=== PATIENT | female | born 1935 | race Caucasian/White ===

== ENCOUNTER → 2016-09-11 | Outpatient (REF) | payer MEDICARE ==
[~2016-09-11] MED LIST: ACET65TA PO; ALIG4CAP PO; ALLO300T OR; AMLO5TAB2 PO; ANUS25SU PR; ASPI81TA83 OR; CALCTAB22 OR; CIPR25SS PO; FLAG500T PO; GLIM1TAB OR; GLUC1000 OR; LEVO100T7 OR; LISI20TA5 OR; OXYB5TAB OR; TRAM50TA2 PO; VIT D; VIT D OR; VITA-113 SL; [UNRECOGNIZED DRUG - OTHER]; [UNRECOGNIZED DRUG - OTHER] OR
== END ==
LOC: M LAB REF 09:51
PROVIDERS: ATTEND Physician Assistant Medical
DX: R19.7 Diarrhea, unspecified (principal)

== ENCOUNTER → 2016-09-27 | Outpatient (REF) | payer MEDICARE | LOC: M LAB REF 12:03 | PROVIDERS: ATTEND Physician Assistant Medical | DX: R19.7 Diarrhea, unspecified (principal) ==

== ENCOUNTER → 2016-10-17 | Outpatient (REF) | payer MEDICARE ==
[~2016-10-17] MED LIST changes: +ASPI1TAB PO; +CALCTAB29 PO; +LEVO100T5 PO; +LISI10TA4 PO; +METF1000 PO; +OXYBPOW PB; +VITA250L PO; +ZYLO300T4 PO
== END ==
LOC: M LAB REF 20:45
PROVIDERS: ATTEND Physician Assistant Medical
DX: A04.7 Enterocolitis due to Clostridium difficile (principal)

== ENCOUNTER → 2016-10-19 | Outpatient (CLI) | payer OTHER ==
[~2016-10-19] VITALS: Ht 160 cm; Wt 65.8 kg
[~2016-10-19] MED LIST changes: +FECAL MICROBIOTA PREPARATION 30 ML BTL (J3590) XX ONE; +LIDOCAINE 2% INJ 100 MG/5 ML SDV (FOR ANES.) As Ordered ONE; +NS 1,000 ML IV SCH; +PROPOFOL 200 MG/20 ML VIAL As Ordered ONE
--- NOTE | 2016-10-19 15:39 | ROOR ---
Patient Name: Anisha Ford Procedure Date: 10/19/2016 3:17 PM Date of : 1935 Age: 81 Room: [facility] Gender: Female Note Status: Finalized Procedure: Upper GI endoscopy Indications: Therapeutic procedure, Heartburn Fecal Transplant for recurrent C difficile. Providers: He MARCOS MD Referring MD: Melvin Jiang MD Requesting Provider: Medicines: Monitored Anesthesia Care Complications: No immediate complications. Procedure: Pre-Anesthesia Assessment: - The heart rate, respiratory rate, oxygen saturations, blood pressure, adequacy of pulmonary ventilation, and response to care were monitored throughout the procedure. The Endoscope was introduced through the mouth, and advanced to the third part of duodenum. The upper GI endoscopy was accomplished without difficulty. The patient tolerated the procedure well. Findings: The examined duodenum was normal. Fecal Microbiota Transplant (Bacteriotherapy): Donor stool was prepared as per protocol. Donor stool was instilled. The exam was otherwise without abnormality. Impression: - Fecal Microbiota Transplant (Bacteriotherapy) performed. - The examination was otherwise normal. - No specimens collected. Recommendation: - Observe patient's clinical course. He Marcos MD He MARCOS MD 10/19/2016 3:39:12 PM This report has been signed electronically. Number of Addenda: 0 Note Initiated On: 10/19/2016 3:17 PM Estimated Blood Loss: Estimated blood loss: none.
[2016-10-19 16:09] VITALS: BP 120/71
== END ==
LOC: M OPP 13:38
PROVIDERS: ATTEND Internal Medicine Gastroenterology
DX: A04.7 Enterocolitis due to Clostridium difficile (principal); I10 Essential (primary) hypertension; E11.9 Type 2 diabetes mellitus without complications; M10.9 Gout, unspecified; R12 Heartburn; E03.9 Hypothyroidism, unspecified; Z78.0 Asymptomatic menopausal state; Z88.2 Allergy status to sulfonamides; Z88.8 Allergy status to other drugs, medicaments and biological substances; Z91.048 Other nonmedicinal substance allergy status; Z79.82 Long term (current) use of aspirin; Z79.84 Long term (current) use of oral hypoglycemic drugs; Z79.899 Other long term (current) drug therapy
CPT/HCPCS: 99156; G0455; J3590

== ENCOUNTER → 2016-10-28 | Outpatient (REF) | payer MEDICARE ==
[~2016-10-28] MED LIST changes: -FECAL MICROBIOTA PREPARATION 30 ML BTL (J3590) XX ONE; -LIDOCAINE 2% INJ 100 MG/5 ML SDV (FOR ANES.) As Ordered ONE; -NS 1,000 ML IV SCH; -PROPOFOL 200 MG/20 ML VIAL As Ordered ONE
== END ==
LOC: M LAB REF 15:40
PROVIDERS: ATTEND Physician Assistant Medical
DX: R19.7 Diarrhea, unspecified (principal)

== ENCOUNTER → 2016-12-02 | Outpatient (CLI) | payer OTHER ==
[~2016-12-02] VITALS: Ht 160 cm; Wt 63.5 kg
[~2016-12-02] MED LIST changes: +LIDOCAINE 2% INJ 100 MG/5 ML SDV (FOR ANES.) As Ordered ONE; +META28.32 PO; +NS 1,000 ML IV SCH; -OXYBPOW PB; +OXYBPOW PO; +PROPOFOL 500 MG/50 ML VIAL As Ordered ONE
--- NOTE | 2016-12-02 10:05 | ROOR ---
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 Eval to r/o microscopic colitis Providers: He MARCOS MD Referring MD: Melvin Jiang MD Requesting Provider: Medicines: Monitored Anesthesia Care Complications: No immediate complications. Procedure: Pre-Anesthesia Assessment: - The heart rate, respiratory rate, oxygen saturations, blood pressure, adequacy of pulmonary ventilation, and response to care were monitored throughout the procedure. The Colonoscope was introduced through the anus and advanced to 4 cm into the ileum. The colonoscopy was performed without difficulty. The patient tolerated the procedure well. The quality of the bowel preparation was good. Findings: The perianal and digital rectal examinations were normal. Multiple medium-mouthed diverticula were found in the sigmoid colon. A diminutive polyp was found in the cecum. The polyp was sessile. The polyp was removed with a jumbo cold forceps. Resection and retrieval were complete. The exam was otherwise normal throughout the examined colon. The terminal ileum appeared normal. Biopsies for histology were taken with a cold forceps from the entire colon for evaluation of microscopic colitis. Impression: - Moderate diverticulosis in the sigmoid colon. - One diminutive polyp in the cecum, removed with a jumbo cold forceps. Resected and retrieved. - The examined portion of the ileum was normal. - Biopsies were taken with a cold forceps from the entire colon for evaluation of microscopic colitis. - Fluid collected for C difficile testing Recommendation: - Imodium 1 tablet PO BID. - Return to my office at the next available appointment. - To discuss todays findings, my office will call you in the next few days to schedule a follow up appointment. He Marcos MD He MARCOS MD 12/02/2016 10:05:41 AM This report has been signed electronically. Number of Addenda: 0 Note Initiated On: 12/02/2016 9:40 AM Estimated Blood Loss: Estimated blood loss: none.
[2016-12-02 10:25] VITALS: BP 138/83
== END | disposition home or self-care (01) ==
LOC: M OPP 07:42
PROVIDERS: ATTEND Internal Medicine Gastroenterology
DX: R19.7 Diarrhea, unspecified (principal); D12.0 Benign neoplasm of cecum; K57.30 Diverticulosis of large intestine without perforation or abscess without bleeding; I10 Essential (primary) hypertension; E11.9 Type 2 diabetes mellitus without complications; E03.9 Hypothyroidism, unspecified; K57.92 Diverticulitis of intestine, part unspecified, without perforation or abscess without bleeding; A04.7 Enterocolitis due to Clostridium difficile; Z78.0 Asymptomatic menopausal state; Z88.2 Allergy status to sulfonamides; Z88.8 Allergy status to other drugs, medicaments and biological substances; Z91.048 Other nonmedicinal substance allergy status; Z79.84 Long term (current) use of oral hypoglycemic drugs; Z79.82 Long term (current) use of aspirin; Z79.899 Other long term (current) drug therapy

== ENCOUNTER → 2017-01-20 | Outpatient (REF) | payer MEDICARE ==
[~2017-01-20] MED LIST changes: -LIDOCAINE 2% INJ 100 MG/5 ML SDV (FOR ANES.) As Ordered ONE; -NS 1,000 ML IV SCH; -PROPOFOL 500 MG/50 ML VIAL As Ordered ONE
[2017-01-20 13:41] LABS: MEAN CORPUSCULAR HEMOGLOBIN 34.8 pg (27.0-33.0); MEAN CORPUSCULAR HGB CONC 33.7 g/dl (32.0-36.5); MEAN CORPUSCULAR VOLUME 103.4 fl (80.0-96.0); RED CELL DISTRIBUTION WIDTH 14.2 % (11.5-14.5); WHITE BLOOD COUNT 5.9 K/mm3 (4.0-10.0)
[2017-01-20 14:05] LABS: ALBUMIN 3.8 GM/DL (3.2-5.2); ALBUMIN/GLOBULIN RATIO 1.15 (1.00-1.93); BILIRUBIN,TOTAL 0.5 MG/DL (0.2-1.0); CALCIUM LEVEL 9.1 MG/DL (8.8-10.2); CREATININE FOR GFR 1.09 MG/DL (0.55-1.02); FREE T4 1.35 NG/DL (0.76-1.46); GLOMERULAR FILTRATION RATE 51.4 (>32); TOTAL PROTEIN 7.1 GM/DL (6.4-8.2)
== END ==
LOC: M SFHCPLAZ 11:16
PROVIDERS: ATTEND Family Medicine
DX: R35.0 Frequency of micturition (principal); D51.9 Vitamin B12 deficiency anemia, unspecified; E11.9 Type 2 diabetes mellitus without complications; E03.9 Hypothyroidism, unspecified; E78.2 Mixed hyperlipidemia
CPT/HCPCS: 36415; 80053; 80061; 81002; 82607; 83036; 84439; 84443; 85027; 87086; G0463

== ENCOUNTER → 2017-02-03 | Outpatient (REF) | payer OTHER, MEDICARE | LOC: M LAB REF 15:16 | PROVIDERS: ATTEND Internal Medicine Gastroenterology | DX: K52.831 Collagenous colitis (principal); R19.7 Diarrhea, unspecified; A04.7 Enterocolitis due to Clostridium difficile ==

== ENCOUNTER → 2017-02-23 | Outpatient (REF) | payer MEDICARE ==
[~2017-02-23] MED LIST changes: -METF1000 PO; +METF10004 PO
[2017-02-23 12:02] LABS: BASO # 0.1 K/mm3 (0.0-0.2); BASO % 0.8 % (0.0-1.0); EOS # 0.1 K/mm3 (0.0-0.50); EOS % 2.1 % (0.0-3.0); LARGE UNSTAINED CELL # 0.2 K/mm3 (0.0-0.4); LARGE UNSTAINED CELL % 2.1 % (0.0-4.0); LYMPH # 2.5 K/mm3 (1.5-4.5); LYMPH % 34.4 % (24.0-44.0); MEAN CORPUSCULAR HGB CONC 32.4 g/dl (32.0-36.5); MEAN CORPUSCULAR VOLUME 104.9 fl (80.0-96.0); MONO # 0.3 K/mm3 (0.0-0.8); NEUTROPHILS # 3.9 K/mm3 (1.8-7.7); NEUTROPHILS % 56.5 % (36.0-66.0); PLATELET COUNT, AUTOMATED 395 k/mm3 (150-450); RED CELL DISTRIBUTION WIDTH 13.9 % (11.5-14.5); WHITE BLOOD COUNT 6.9 K/mm3 (4.0-10.0)
[2017-02-23 12:20] LABS: CALCIUM LEVEL 9.5 MG/DL (8.8-10.2); CREATININE FOR GFR 0.99 MG/DL (0.55-1.02); GLOMERULAR FILTRATION RATE 57.5 (>32); POTASSIUM SERUM 4.9 MEQ/L (3.5-5.1)
== END ==
LOC: M SFHCPLAZ 10:37
PROVIDERS: ATTEND Physician Assistant Medical
DX: R42 Dizziness and giddiness (principal); E11.9 Type 2 diabetes mellitus without complications

== ENCOUNTER → 2017-03-08 | Outpatient (REF) | payer MEDICARE ==
[~2017-03-08] MED LIST changes: +METF1000 PO; -METF10004 PO
== END ==
LOC: M LAB REF 09:11
PROVIDERS: ATTEND Physician Assistant Medical
DX: R19.7 Diarrhea, unspecified (principal)

== ENCOUNTER → 2017-03-15 | Outpatient (REF) | payer MEDICARE ==
[~2017-03-15] MED LIST changes: -METF1000 PO; +METF10004 PO
== END ==
LOC: M SFHCADAM 08:18
PROVIDERS: ATTEND Family Medicine
DX: E11.9 Type 2 diabetes mellitus without complications (principal)

== ENCOUNTER → 2017-04-12 | Outpatient (REF) | payer MEDICARE | LOC: M LAB REF 10:09 | PROVIDERS: ATTEND Physician Assistant Medical | DX: R19.7 Diarrhea, unspecified (principal) ==

== ENCOUNTER → 2017-05-10 | Outpatient (CLI) | payer MEDICARE ==
[2017-05-10 16:47] LABS: CALCIUM LEVEL 8.8 MG/DL (8.8-10.2); CREATININE FOR GFR 1.21 MG/DL (0.55-1.02); GLOMERULAR FILTRATION RATE 45.5 (>32)
--- NOTE | 2017-05-10 21:27 | REP ---
Clinical: Hypertension. Technique: PA and lateral. Comparison: 09/07/2015. Findings: Mediastinum and cardiac silhouette are within normal limits and stable. Lung richards demonstrate chronic stable interstitial changes without focal consolidation, effusion, or pneumothorax. Skeletal structures demonstrate age-related osteopenia and degenerative change. Impression: Chronic stable changes. No acute cardiopulmonary process. Signed by Bret Nair MD 05/10/2017 09:19 P
--- NOTE | 2017-05-10 23:29 | ECGEPIP ---
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
== END ==
LOC: M LAB 15:19
PROVIDERS: ATTEND Ophthalmology
DX: H25.12 Age-related nuclear cataract, left eye (principal); E11.9 Type 2 diabetes mellitus without complications; I10 Essential (primary) hypertension
CPT/HCPCS: 36415; 71020; 80048; 93005; G0463

== ENCOUNTER → 2017-08-29 | Outpatient (REF) | payer MEDICARE ==
[2017-08-29 21:02] LABS: CALCIUM LEVEL 9.5 MG/DL (8.8-10.2); CREATININE FOR GFR 1.3 MG/DL (0.55-1.02); GLOMERULAR FILTRATION RATE 41.9 (>32)
[2017-08-29 21:05] LABS: POTASSIUM SERUM 5.2 MEQ/L (3.5-5.1)
== END ==
LOC: M SFHCADAM 13:29
PROVIDERS: ATTEND Physician Assistant
DX: N18.3 Chronic kidney disease, stage 3 (moderate) (principal)

== ENCOUNTER → 2017-09-21 | Outpatient (REF) | payer MEDICARE | LOC: M SFHCADAM 07:56 | DX: E78.2 Mixed hyperlipidemia (principal); E03.9 Hypothyroidism, unspecified; E11.9 Type 2 diabetes mellitus without complications; D63.1 Anemia in chronic kidney disease; Z53.9 Procedure and treatment not carried out, unspecified reason ==

== ENCOUNTER 2017-12-13 09:15 | Emergency (ER) | payer MEDICARE ==
[2017-12-13 11:09] LABS: BASO # 0.1 10^3/uL (0.0-0.2); BASO % 0.7 % (0.0-1.0); EOS # 0.2 10^3/uL (0.0-0.50); EOS % 1.9 % (0.0-3.0); HEMOGLOBIN 11.6 g/dl (12.0-15.5); IMMATURE GRANULOCYTE % 0.4 % (0-3.0); LYMPH # 2.8 10^3/uL (1.5-4.5); LYMPH % 33.5 % (24.0-44.0); MEAN CORPUSCULAR HEMOGLOBIN 33.5 pg (27.0-33.0); MEAN CORPUSCULAR HGB CONC 33.1 g/dl (32.0-36.5); MEAN CORPUSCULAR VOLUME 101.2 fl (80.0-96.0); MONO # 0.6 10^3/uL (0.0-0.8); MONO % 7.4 % (0.0-5.0); NEUTROPHILS # 4.6 10^3/uL (1.8-7.7); NEUTROPHILS % 56.1 % (36.0-66.0); PLATELET COUNT, AUTOMATED 398 10^3/uL (150-450); RED BLOOD COUNT 3.46 10^6/uL (4.00-5.40); RED CELL DISTRIBUTION WIDTH 14.8 % (11.5-14.5); WHITE BLOOD COUNT 8.2 10^3/uL (4.0-10.0)
[2017-12-13 11:13] LABS: ALBUMIN 4.2 GM/DL (3.2-5.2); ALBUMIN/GLOBULIN RATIO 1.17 (1.00-1.93); ALKALINE PHOSPHATASE 67 U/L (45-117); ALT/SGPT 34 U/L (12-78); ANION GAP 10 MEQ/L (8-16); AST/SGOT 28 U/L (7-37); BILIRUBIN,DIRECT 0.2 MG/DL (0.0-0.2); BILIRUBIN,TOTAL 0.6 MG/DL (0.2-1.0); BLOOD UREA NITROGEN 26 MG/DL (7-18); CALCIUM LEVEL 9.3 MG/DL (8.8-10.2); CARBON DIOXIDE LEVEL 25 MEQ/L (21-32); CHLORIDE LEVEL 108 MEQ/L (98-107); CREATININE FOR GFR 1.12 MG/DL (0.55-1.30); GLOMERULAR FILTRATION RATE 49.7 (>32); GLUCOSE, FASTING 126 MG/DL (70-100); LIPASE 57 U/L (73-393); POTASSIUM SERUM 4.3 MEQ/L (3.5-5.1); SODIUM LEVEL 143 MEQ/L (136-145); TOTAL PROTEIN 7.8 GM/DL (6.4-8.2)
[2017-12-13 11:23] LABS: LACTIC ACID SEPSIS PROTOCOL 2.7 MMOL/L (0.4-2.0)
[2017-12-13] MEDS: NS 1,000 ML IV (11:30)
[2017-12-13] MEDS ORDERED: ISOVUE-370 76% 100ML VIAL (Q9967) As Ordered (11:35)
[2017-12-13] MEDS ORDERED: CEFTAROLINE FOSAMIL 600 MG VIAL (TEFLARO) (J0712 PER 10MG) As Ordered (12:06)
== END 2017-12-13 13:06 | disposition home or self-care (01) ==
LOC: M ED 09:15
DX: E86.0 Dehydration (principal); K43.9 Ventral hernia without obstruction or gangrene; K82.8 Other specified diseases of gallbladder; I10 Essential (primary) hypertension; E11.9 Type 2 diabetes mellitus without complications; E07.9 Disorder of thyroid, unspecified; Z87.19 Personal history of other diseases of the digestive system; Z98.890 Other specified postprocedural states; Z88.2 Allergy status to sulfonamides; Z88.1 Allergy status to other antibiotic agents; Z88.8 Allergy status to other drugs, medicaments and biological substances; Z91.048 Other nonmedicinal substance allergy status; Z79.899 Other long term (current) drug therapy; Z79.82 Long term (current) use of aspirin; Z79.890 Hormone replacement therapy; Z79.84 Long term (current) use of oral hypoglycemic drugs
CPT/HCPCS: Q9967

== ENCOUNTER → 2018-01-16 | Outpatient (REF) | payer MEDICARE ==
[2018-01-16 12:43] LABS: HEMATOCRIT 33.9 % (36.0-47.0); HEMOGLOBIN 11.2 g/dl (12.0-15.5); MEAN CORPUSCULAR HEMOGLOBIN 34.5 pg (27.0-33.0); MEAN CORPUSCULAR VOLUME 104.3 fl (80.0-96.0); PLATELET COUNT, AUTOMATED 394 10^3/uL (150-450); RED BLOOD COUNT 3.25 10^6/uL (4.00-5.40); RED CELL DISTRIBUTION WIDTH 14.5 % (11.5-14.5); RETIC HEMOGLOBIN EQUIVALENT 38.9 pg (24-36); RETICULOCYTE # 63.1 10^9/L (17-77); RETICULOCYTE % 1.9 % (0.5-1.5)
[2018-01-16 13:07] LABS: ALBUMIN 3.9 GM/DL (3.2-5.2); ALBUMIN/GLOBULIN RATIO 1.22 (1.00-1.93); ALKALINE PHOSPHATASE 50 U/L (45-117); ALT/SGPT 26 U/L (12-78); ANION GAP 7 MEQ/L (8-16); AST/SGOT 23 U/L (7-37); BILIRUBIN,TOTAL 0.6 MG/DL (0.2-1.0); BLOOD UREA NITROGEN 32 MG/DL (7-18); CARBON DIOXIDE LEVEL 25 MEQ/L (21-32); CHLORIDE LEVEL 109 MEQ/L (98-107); CHOLESTEROL LEVEL 136 MG/DL (<200); CHOLESTEROL RISK RATIO 2.472 (<5); FERRITIN 58 NG/ML (8-252); FREE T4 1.37 NG/DL (0.76-1.46); GLOMERULAR FILTRATION RATE 45.9 (>32); GLUCOSE, FASTING 103 MG/DL (70-100); HDL CHOLESTEROL 55 MG/DL (>40); IRON (FE) 74 UG/DL (50-170); LDL CHOLESTEROL 65.4 MG/DL (<100); NON-HDL-C 81 MG/DL; POTASSIUM SERUM 4.9 MEQ/L (3.5-5.1); SODIUM LEVEL 141 MEQ/L (136-145); TOTAL IRON BINDING CAPACITY 353 UG/DL (250-450); TOTAL PROTEIN 7.1 GM/DL (6.4-8.2); TRIGLYCERIDES LEVEL 78 MG/DL (<150)
[2018-01-16 13:37] LABS: CREATININE, URINE 93.5 MG/DL; MALB URINE SIEMENS 9.2 MG/L; MAU/CREAT RATIO 9.8 MCG/MG (0.0-30.0)
[2018-01-16 13:41] LABS: ESTIMATED AVERAGE GLUCOSE 111 MG/DL (60-110); HEMOGLOBIN A1c 5.5 %
== END ==
LOC: M SFHCADAM 12:10
DX: N18.9 Chronic kidney disease, unspecified (principal); E11.9 Type 2 diabetes mellitus without complications; E78.2 Mixed hyperlipidemia; D63.1 Anemia in chronic kidney disease
CPT/HCPCS: 83550

== ENCOUNTER 2018-02-01 10:05 | Inpatient (IN) | payer MEDICARE ==
[2018-02-01 11:34] LABS: BASO # 0.1 10^3/uL (0.0-0.2); BASO % 0.6 % (0.0-1.0); EOS # 0.1 10^3/uL (0.0-0.50); EOS % 1.3 % (0.0-3.0); HEMATOCRIT 34.9 % (36.0-47.0); HEMOGLOBIN 11.6 g/dl (12.0-15.5); IMMATURE GRANULOCYTE % 0.5 % (0-3.0); LYMPH # 2.2 10^3/uL (1.5-4.5); LYMPH % 21.4 % (24.0-44.0); MEAN CORPUSCULAR HGB CONC 33.2 g/dl (32.0-36.5); MEAN CORPUSCULAR VOLUME 102.3 fl (80.0-96.0); MONO # 0.9 10^3/uL (0.0-0.8); MONO % 8.3 % (0.0-5.0); NEUTROPHILS # 7.1 10^3/uL (1.8-7.7); NEUTROPHILS % 67.9 % (36.0-66.0); PLATELET COUNT, AUTOMATED 398 10^3/uL (150-450); RED BLOOD COUNT 3.41 10^6/uL (4.00-5.40); RED CELL DISTRIBUTION WIDTH 13.9 % (11.5-14.5); WHITE BLOOD COUNT 10.5 10^3/uL (4.0-10.0)
[2018-02-01] MEDS: NS 500 ML IV (11:38)
[2018-02-01 11:44] LABS: INR 0.95; PROTHROMBIN TIME 12.8 SECONDS (12.4-14.5)
[2018-02-01 11:45] LABS: PARTIAL THROMBOPLASTIN TIME 29.7 SECONDS (26.8-37.9)
[2018-02-01 11:59] LABS: ANION GAP 8 MEQ/L (8-16); BLOOD UREA NITROGEN 21 MG/DL (7-18); CALCIUM LEVEL 9.1 MG/DL (8.8-10.2); CARBON DIOXIDE LEVEL 24 MEQ/L (21-32); CHLORIDE LEVEL 109 MEQ/L (98-107); CREATININE FOR GFR 1.22 MG/DL (0.55-1.30); GLUCOSE, FASTING 193 MG/DL (70-100); POTASSIUM SERUM 4.7 MEQ/L (3.5-5.1); SODIUM LEVEL 141 MEQ/L (136-145)
[2018-02-01 12:22] LABS: LACTIC ACID SEPSIS PROTOCOL 3.4 MMOL/L (0.4-2.0)
[2018-02-01 12:25] LABS: KETONE, URINE AUTO RFX NEGATIVE (NEGATIVE); LEUKOCYTE ESTERASE UR AUTO RFX NEGATIVE (NEGATIVE); MUCUS, URINE RFX SMALL (NEGATIVE); NITRITE, URINE AUTO RFX POSITIVE (NEGATIVE); RBC, URINE AUTO RFX 8 /HPF (0-3); SPECIFIC GRAVITY UR AUTO RFX 1.008 (1.002-1.035); SQUAM EPITHELIAL CELL UR AURFX 0 /HPF (0-6); WBC, URINE AUTO RFX 3 /HPF (0-3)
[2018-02-01] MEDS ORDERED: ISOVUE-370 76% 100ML VIAL (Q9967) As Ordered (12:53)
[2018-02-01] MEDS: cefTRIAXone SOD 1 GM in D5W MINI-BAG PLUS 50 ML IV (13:09)
[2018-02-01] MEDS: NS 1,000 ML IV ×3 (13:09→21:30)
[2018-02-01] MEDS ORDERED: GLUCOSE 4 GM CHEW TABLET PO (15:30)
[2018-02-01] MEDS ORDERED: ONDANSETRON 4MG/2ML VIAL (J2405) IV (15:30)
[2018-02-01] MEDS ORDERED: GLUCAGON FOR INJ 1 MG VIAL (J1610) SC (15:30)
[2018-02-01] MEDS ORDERED: DEXTROSE 50% 50 ML SYRINGE IV (15:30)
[2018-02-01] MEDS: ACETAMINOPHEN TAB 650MG DOSE (2X325MG) PO (16:00)
[2018-02-01 16:41] LABS: ALBUMIN 3.8 GM/DL (3.2-5.2); ALKALINE PHOSPHATASE 66 U/L (45-117); ALT/SGPT 31 U/L (12-78); AMYLASE 93 U/L (25-115); AST/SGOT 20 U/L (7-37); BILIRUBIN,DIRECT 0.1 MG/DL (0.0-0.2); BILIRUBIN,TOTAL 0.4 MG/DL (0.2-1.0); LIPASE 76 U/L (73-393); TOTAL PROTEIN 7.6 GM/DL (6.4-8.2)
[2018-02-01] MEDS: CIPROFLOXACIN 400 MG in APPROPRIATE DILUENT 1 EA IV (17:00)
[2018-02-01 17:56] LABS: BEDSIDE GLUCOSE 151 MG/DL (83-110)
[2018-02-01] MEDS: metroNIDAZOLE 500 MG in APPROPRIATE DILUENT 1 EA IV (18:16)
[2018-02-01] MEDS: HumaLOG INSULIN (NovoLOG) PER UNIT SC ×2 (18:17→21:00)
[2018-02-01 20:40] LABS: ANION GAP 11 MEQ/L (8-16); BLOOD UREA NITROGEN 16 MG/DL (7-18); CALCIUM LEVEL 8.3 MG/DL (8.8-10.2); CARBON DIOXIDE LEVEL 18 MEQ/L (21-32); CHLORIDE LEVEL 111 MEQ/L (98-107); CREATININE FOR GFR 1.19 MG/DL (0.55-1.30); GLOMERULAR FILTRATION RATE 46.3 (>32); GLUCOSE, FASTING 206 MG/DL (70-100); SODIUM LEVEL 140 MEQ/L (136-145)
[2018-02-02] MEDS: ACETAMINOPHEN TAB 650MG DOSE (2X325MG) PO (00:18)
[2018-02-02] MEDS: ASPIRIN 81 MG ENTERIC TAB PO ×2 (00:18→20:37)
[2018-02-02] MEDS: LACTOBACILLUS ACIDOPHILUS CAP (BACID) PO ×3 (00:18→20:37)
[2018-02-02 00:37] LABS: BEDSIDE GLUCOSE 108 MG/DL (83-110)
[2018-02-02] MEDS: metroNIDAZOLE 500 MG in APPROPRIATE DILUENT 1 EA IV ×3 (03:13→18:49)
[2018-02-02] MEDS: CIPROFLOXACIN 400 MG in APPROPRIATE DILUENT 1 EA IV ×2 (06:05→16:10)
[2018-02-02] MEDS: LEVOTHYROXINE 100MCG TABLET (0.1MG) PO (06:05)
[2018-02-02 06:56] LABS: BASO % 0.2 % (0.0-1.0); EOS # 0.2 10^3/uL (0.0-0.50); EOS % 2.1 % (0.0-3.0); HEMATOCRIT 27.6 % (36.0-47.0); HEMOGLOBIN 9.3 g/dl (12.0-15.5); IMMATURE GRANULOCYTE % 0.5 % (0-3.0); LYMPH # 2.4 10^3/uL (1.5-4.5); MEAN CORPUSCULAR HEMOGLOBIN 34.3 pg (27.0-33.0); MEAN CORPUSCULAR HGB CONC 33.7 g/dl (32.0-36.5); MEAN CORPUSCULAR VOLUME 101.8 fl (80.0-96.0); MONO # 0.7 10^3/uL (0.0-0.8); MONO % 7.7 % (0.0-5.0); NEUTROPHILS # 5.3 10^3/uL (1.8-7.7); NEUTROPHILS % 61.5 % (36.0-66.0); PLATELET COUNT, AUTOMATED 336 10^3/uL (150-450); RED BLOOD COUNT 2.71 10^6/uL (4.00-5.40); RED CELL DISTRIBUTION WIDTH 13.8 % (11.5-14.5); WHITE BLOOD COUNT 8.6 10^3/uL (4.0-10.0)
[2018-02-02 07:12] LABS: LACTIC ACID SEPSIS PROTOCOL 1.4 MMOL/L (0.4-2.0)
[2018-02-02 07:13] LABS: ALBUMIN 2.9 GM/DL (3.2-5.2); ALBUMIN/GLOBULIN RATIO 0.88 (1.00-1.93); ALKALINE PHOSPHATASE 51 U/L (45-117); ALT/SGPT 23 U/L (12-78); ANION GAP 4 MEQ/L (8-16); AST/SGOT 19 U/L (7-37); BILIRUBIN,TOTAL 0.6 MG/DL (0.2-1.0); BLOOD UREA NITROGEN 12 MG/DL (7-18); CALCIUM LEVEL 7.8 MG/DL (8.8-10.2); CARBON DIOXIDE LEVEL 23 MEQ/L (21-32); CHLORIDE LEVEL 114 MEQ/L (98-107); GLOMERULAR FILTRATION RATE 56.6 (>32); GLUCOSE, FASTING 114 MG/DL (70-100); MAGNESIUM LEVEL 1.4 MG/DL (1.8-2.4); POTASSIUM SERUM 4.3 MEQ/L (3.5-5.1); SODIUM LEVEL 141 MEQ/L (136-145); TOTAL PROTEIN 6.2 GM/DL (6.4-8.2)
[2018-02-02 07:27] LABS: BEDSIDE GLUCOSE 122 MG/DL (83-110)
[2018-02-02] MEDS: HumaLOG INSULIN (NovoLOG) PER UNIT SC ×4 (07:30→20:30)
[2018-02-02] MEDS: amLODIPine 5 MG TAB PO (09:00)
[2018-02-02] MEDS: oxyBUTYnin 5 MG TAB PO (09:13)
[2018-02-02 11:53] LABS: BEDSIDE GLUCOSE 119 MG/DL (83-110)
[2018-02-02 16:51] LABS: BEDSIDE GLUCOSE 142 MG/DL (83-110)
[2018-02-02] MEDS: NS 1,000 ML IV (18:40)
[2018-02-02 20:00] LABS: BEDSIDE GLUCOSE 162 MG/DL (83-110)
[2018-02-03] MEDS: metroNIDAZOLE 500 MG in APPROPRIATE DILUENT 1 EA IV ×2 (01:29→10:51)
[2018-02-03] MEDS: LEVOTHYROXINE 100MCG TABLET (0.1MG) PO (05:44)
[2018-02-03] MEDS: CIPROFLOXACIN 400 MG in APPROPRIATE DILUENT 1 EA IV (05:45)
[2018-02-03 06:51] LABS: BASO % 0.7 % (0.0-1.0); EOS # 0.3 10^3/uL (0.0-0.50); EOS % 4.6 % (0.0-3.0); HEMATOCRIT 30.7 % (36.0-47.0); HEMOGLOBIN 10.3 g/dl (12.0-15.5); IMMATURE GRANULOCYTE % 0.7 % (0-3.0); LYMPH # 2.1 10^3/uL (1.5-4.5); LYMPH % 34.5 % (24.0-44.0); MEAN CORPUSCULAR HEMOGLOBIN 34.2 pg (27.0-33.0); MEAN CORPUSCULAR HGB CONC 33.6 g/dl (32.0-36.5); MONO # 0.6 10^3/uL (0.0-0.8); MONO % 9.3 % (0.0-5.0); NEUTROPHILS # 3.1 10^3/uL (1.8-7.7); NEUTROPHILS % 50.2 % (36.0-66.0); PLATELET COUNT, AUTOMATED 377 10^3/uL (150-450); RED BLOOD COUNT 3.01 10^6/uL (4.00-5.40); RED CELL DISTRIBUTION WIDTH 13.9 % (11.5-14.5); WHITE BLOOD COUNT 6.1 10^3/uL (4.0-10.0)
[2018-02-03 07:17] LABS: ALBUMIN 3.1 GM/DL (3.2-5.2); ALBUMIN/GLOBULIN RATIO 0.86 (1.00-1.93); ALKALINE PHOSPHATASE 57 U/L (45-117); ALT/SGPT 23 U/L (12-78); ANION GAP 8 MEQ/L (8-16); AST/SGOT 17 U/L (7-37); BILIRUBIN,TOTAL 0.4 MG/DL (0.2-1.0); BLOOD UREA NITROGEN 10 MG/DL (7-18); CARBON DIOXIDE LEVEL 23 MEQ/L (21-32); CHLORIDE LEVEL 113 MEQ/L (98-107); CREATININE FOR GFR 0.96 MG/DL (0.55-1.30); GLOMERULAR FILTRATION RATE 59.4 (>32); GLUCOSE, FASTING 128 MG/DL (70-100); MAGNESIUM LEVEL 1.4 MG/DL (1.8-2.4); POTASSIUM SERUM 4.1 MEQ/L (3.5-5.1); SODIUM LEVEL 144 MEQ/L (136-145); TOTAL PROTEIN 6.7 GM/DL (6.4-8.2)
[2018-02-03] MEDS: HumaLOG INSULIN (NovoLOG) PER UNIT SC ×2 (08:09→12:22)
[2018-02-03] MEDS: oxyBUTYnin 5 MG TAB PO (08:09)
[2018-02-03] MEDS: LACTOBACILLUS ACIDOPHILUS CAP (BACID) PO (08:09)
[2018-02-03] MEDS: NS 1,000 ML IV (08:10)
[2018-02-03] MEDS: amLODIPine 5 MG TAB PO (08:10)
[2018-02-03 12:09] LABS: BEDSIDE GLUCOSE 146 MG/DL (83-110)
== END 2018-02-03 13:20 | disposition home or self-care (01) | DRG 392 ==
LOC: M ED 10:05 → M ED INP 22:00 → M MS5PR 23:30
DX: K57.92 Diverticulitis of intestine, part unspecified, without perforation or abscess without bleeding (principal); N39.0 Urinary tract infection, site not specified; I12.9 Hypertensive chronic kidney disease with stage 1 through stage 4 chronic kidney disease, or unspecified chronic kidney disease; E03.9 Hypothyroidism, unspecified; E11.9 Type 2 diabetes mellitus without complications; N18.3 Chronic kidney disease, stage 3 (moderate); K43.9 Ventral hernia without obstruction or gangrene; B96.29 Other Escherichia coli [E. coli] as the cause of diseases classified elsewhere; Z79.899 Other long term (current) drug therapy; Z86.19 Personal history of other infectious and parasitic diseases

== ENCOUNTER → 2018-06-19 | Outpatient (REF) | payer MEDICARE, OTHER ==
[2018-06-19 20:41] LABS: APPEARANCE, URINE CLOUDY (CLEAR); BACTERIA, URINE AUTO 1+ (NEGATIVE); BILIRUBIN, URINE AUTO NEGATIVE (NEGATIVE); BLOOD, URINE BLOOD 2+ (NEGATIVE); COLOR, URINE YELLOW (YELLOW); GLUCOSE, URINE (UA) AUTO NEGATIVE (NEGATIVE); KETONE, URINE AUTO NEGATIVE (NEGATIVE); LEUKOCYTE ESTERASE, URINE AUTO 3+ (NEGATIVE); NITRITE, URINE AUTO POSITIVE (NEGATIVE); PROTEIN, URINE AUTO 1+ mg/dL (NEGATIVE); RBC, URINE AUTO 30 /HPF (0-3); SPECIFIC GRAVITY URINE AUTO 1.009 (1.002-1.035); SQUAMOUS EPITHELIAL CELL UR AU 1 /HPF (0-6); UROBILINOGEN, URINE AUTO 0.2 mg/dL (0.0-2.0); WBC, URINE AUTO TNTC /HPF (0-3)
== END ==
LOC: M SFHCADAM 09:44
DX: R35.0 Frequency of micturition (principal)
CPT/HCPCS: 81001

== ENCOUNTER → 2018-08-24 | Outpatient (REF) | payer MEDICARE, OTHER ==
[~2018-08-24] MED LIST changes: -AMLO5TAB2 PO; +AMLO5TAB6 PO; +B-1210009 PO; +CIPR500T3 PO; +LISI-542 PO; +METR-201 PO; +NORCOTAB PO; +OXYB5TAB10 PO; -ZYLO300T4 PO; +ZYLO300T6 PO
[2018-08-24 19:49] LABS: APPEARANCE, URINE CLEAR (CLEAR); BACTERIA, URINE AUTO 1+ (NEGATIVE); BILIRUBIN, URINE AUTO NEGATIVE (NEGATIVE); BLOOD, URINE BLOOD NEGATIVE (NEGATIVE); COLOR, URINE STRAW (YELLOW); GLUCOSE, URINE (UA) AUTO NEGATIVE (NEGATIVE); KETONE, URINE AUTO NEGATIVE (NEGATIVE); LEUKOCYTE ESTERASE, URINE AUTO 3+ (NEGATIVE); NITRITE, URINE AUTO NEGATIVE (NEGATIVE); PROTEIN, URINE AUTO NEGATIVE (NEGATIVE); RBC, URINE AUTO 3 /HPF (0-3); SPECIFIC GRAVITY URINE AUTO 1.004 (1.002-1.035); SQUAMOUS EPITHELIAL CELL UR AU 0 /HPF (0-6); UROBILINOGEN, URINE AUTO 0.2 mg/dL (0.0-2.0); WBC, URINE AUTO 34 /HPF (0-3)
== END ==
LOC: M SFHCADAM 18:56
PROVIDERS: ATTEND Physician Assistant
DX: N30.00 Acute cystitis without hematuria (principal)
CPT/HCPCS: 81001; 81002; 87088; 87186; G0463

== ENCOUNTER → 2018-12-14 | Outpatient (REF) | payer MEDICARE ==
[~2018-12-14] MED LIST changes: +AMLO2.5T3 PO; -ASPI1TAB PO; +ASPI81TA26 PO; +HYDR-3715 PO; +IMOD2TAB16 PO; +META48.53 PO; -METR-201 PO; +METR-265 PO; -NORCOTAB PO
[2018-12-14 19:11] LABS: CREATININE FOR GFR 1.26 MG/DL (0.55-1.30); GLOMERULAR FILTRATION RATE 43.3 (>32); POTASSIUM SERUM 4.8 MEQ/L (3.5-5.1)
== END ==
LOC: M SFHCADAM 13:52
PROVIDERS: ATTEND Physician Assistant Medical
DX: H57.11 Ocular pain, right eye (principal); E11.9 Type 2 diabetes mellitus without complications
CPT/HCPCS: 80048; G0463

== ENCOUNTER 2018-12-16 14:49 | Observation (INO) | payer MEDICARE ==
[~2018-12-16] VITALS: Ht 160 cm; Wt 60.5 kg
[~2018-12-16 14:49] MED LIST changes: -AMLO2.5T3 PO; -IMOD2TAB16 PO; -META48.53 PO
[2018-12-16 15:44] LABS: BASO % 0.6 % (0.0-1.0); EOS # 0.1 10^3/uL (0.0-0.50); EOS % 1.9 % (0.0-3.0); HEMATOCRIT 34.8 % (36.0-47.0); HEMOGLOBIN 11.4 g/dl (12.0-15.5); LYMPH # 2.5 10^3/uL (1.5-4.5); LYMPH % 36.3 % (24.0-44.0); MEAN CORPUSCULAR HEMOGLOBIN 33.5 pg (27.0-33.0); MEAN CORPUSCULAR HGB CONC 32.8 g/dl (32.0-36.5); MEAN CORPUSCULAR VOLUME 102.4 fl (80.0-96.0); MONO # 0.5 10^3/uL (0.0-0.8); MONO % 7.8 % (0.0-5.0); NEUTROPHILS # 3.6 10^3/uL (1.8-7.7); PLATELET COUNT, AUTOMATED 411 10^3/uL (150-450); WHITE BLOOD COUNT 6.8 10^3/uL (4.0-10.0)
[2018-12-16] MEDS ORDERED: MECLIZINE 25 MG TABLET PO ONE (15:45)
[2018-12-16 15:53] LABS: ALBUMIN 3.9 GM/DL (3.2-5.2); ALT/SGPT 35 U/L (12-78); AMYLASE 84 U/L (25-115); BILIRUBIN,DIRECT 0.2 MG/DL (0.0-0.2); BILIRUBIN,TOTAL 0.7 MG/DL (0.2-1.0); BLOOD UREA NITROGEN 25 MG/DL (7-18); CALCIUM LEVEL 8.7 MG/DL (8.8-10.2); CARBON DIOXIDE LEVEL 25 MEQ/L (21-32); CHLORIDE LEVEL 107 MEQ/L (98-107); CPK CREATINE PHOSPHOKINASE 56 U/L (26-192); CREATININE FOR GFR 1.12 MG/DL (0.55-1.30); GLOMERULAR FILTRATION RATE 49.6 (>32); GLUCOSE, FASTING 146 MG/DL (70-100); LIPASE 197 U/L (73-393); MB/CK RELATIVE INDEX 2.68 (< OR =4); POTASSIUM SERUM 4.5 MEQ/L (3.5-5.1); SODIUM LEVEL 139 MEQ/L (136-145); TOTAL PROTEIN 7.3 GM/DL (6.4-8.2); TROPONIN I < 0.02 NG/ML (< 0.10)
--- NOTE | 2018-12-16 16:28 | REP ---
Clinical: Vertigo. Findings: Age-related atrophy with periventricular leukomalacia and microvascular ischemic changes are appreciated. The ventricles and sulci are symmetric. Escaimlla-white differentiation is maintained. There is no evidence for acute intracranial hemorrhage, mass/mass effect, pathology or infarction. No extra-axial fluid collection. Calvarium is intact. Paranasal sinuses and mastoid air cells are clear. Impression: Atrophy and microvascular ischemic changes. No acute intracranial hemorrhage, infarction, or mass/mass effect. Electronically Signed by Bret Nair MD 12/16/2018 04:19 P
--- NOTE | 2018-12-16 16:57 | REP ---
Clinical: Lower chest and abdominal pain . Comparison: 05/10/2017 . Technique: PA and lateral. Findings: The mediastinum and cardiac silhouette are normal. The lung richards are clear and without acute consolidation, effusion, or pneumothorax. The skeletal structures are intact and normal. Impression: 1. No acute cardiopulmonary process. Electronically Signed by Bret Nair MD 12/16/2018 04:49 P
--- NOTE | 2018-12-16 18:08 | ECGEPIP ---
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
--- NOTE | 2018-12-16 19:40 | HPEPDOC ---
[facility] Medical History & Physical Date of Admission Dec 16, 2018 Primary Care Physician: Melvin Jiang MD Attending Physician: Melvin Jiang MD History and Physical CHIEF COMPLAINT: Dizziness HISTORY OF PRESENT ILLNESS: Patient is an 83-year-old female with past medical history of diabetes, hypertension, hyperthyroidism, diverticulosis, diverticulitis, CKD 3, c diff with stool transplant brought in by family members with complaints of dizziness and unsteady gait. Patient was noted to be dizzy since 10 AM this morning but denies any other complaints including fevers, chills, urinary symptoms, chest pain. She currently reported feeling better but likely will still get dizzy if she moves. The pressure was noted to be elevated upon ER arrival but had gone down since without any intervention and currently feels well when lying still. No previous history of vertigo or similar symptoms. PAST MEDICAL HISTORY: [facility]er [facility] PAST SURGICAL HISTORY: 1. Bladder surgery. 2. Hernia repair. 3. Lithotripsy. 4. Stool transplant for C. difficile. 5. Cataract surgery. SOCIAL HISTORY: Denies tobacco, illicit drug use or alcohol. FAMILY HISTORY: Father had coronary artery disease Sister. With coronary artery disease and diabetes ALLERGIES: Please see below. REVIEW OF SYSTEMS: 10 point review of system negative except as stated in [facility] HOME MEDICATIONS: Please see below. PHYSICAL EXAMINATION: General: No acute distress, Alert Eyes: Normal sclera, EOMI, DARREN HENT: Atraumatic, neck supple, moist mucous membranes. Ear patent without obstruction, tympanic membrane clear without erythema or effusion appreciated. Cardiovascular: Normal rate, normal rhythm. No murmurs appreciated. Pulmonary: Clear to auscultation b/l, no wheezing GI: Soft, nontender, nondistended Skin: Warm and dry Neuro: CN grossly intact. No focal deficits. Strengths equal b/l. Psych: oriented x 3 LABORATORY DATA: See below. IMAGING: CT Head- Impression: Atrophy and microvascular ischemic changes. No acute intracranial hemorrhage, infarction, or mass/mass effect. CXR- Findings: The mediastinum and cardiac silhouette are normal. The lung richards are clear and without acute consolidation, effusion, or pneumothorax. The skeletal structures are intact and normal. Impression: 1. No acute cardiopulmonary process. MICROBIOLOGY: Please see below. ASSESSMENT AND PLAN: 1. Vertigo - Symptoms now improved but still unsteady when trying to get out of bed. - s/p Meclizine. BP also noted to be elevated upon arrival but now had gone down, could also contribute to symptoms. - Urine study without strong evidence of infection. No clinical signs of any infectious process at this time. - CT head without acute changes. No neurological deficits. - Will observe overnight for supportive care. - PT ordered. Also vestibular PT as well if possible. - Gentle IVF hydration. 2. DM - Accuchecks with ISS - Hold home dose metformin 3. HTN - Resume home medications. - Monitor BP 4. Hypothyroidism - Resume home meds. Patient is high risk due to vertigo symptoms and unable to ambulate at this time in the setting of advanced age and multiple comorbidities Estimated length of stay less than 2 midnights with expected disposition to home. Vital Signs Vital Signs Date Time Temp Pulse Resp B/P (MAP) Pulse Ox O2 Delivery O2 Flow Rate FiO2 12/16/18 19:30 83 155/84 (107) 90 148/83 (104) 12/16/18 19:04 96 Room Air 12/16/18 15:34 16 12/16/18 14:57 98.1 Laboratory Data Labs 24H Laboratory Tests 2 12/16/18 15:12: Immature Granulocyte % (Auto) 0.4, White Blood Count 6.8, Red Blood Count 3.40L, Hemoglobin 11.4L, Hematocrit 34.8L, Mean Corpuscular Volume 102.4H, Mean Corpuscular Hemoglobin 33.5H, Mean Corpuscular Hemoglobin Concent 32.8, Red Cell Distribution Width 13.6, Platelet Count 411, Neutrophils (%) (Auto) 53.0, Lymphocytes (%) (Auto) 36.3, Monocytes (%) (Auto) 7.8H, Eosinophils (%) (Auto) 1.9, Basophils (%) (Auto) 0.6, Neutrophils # (Auto) 3.6, Lymphocytes # (Auto) 2.5, Monocytes # (Auto) 0.5, Eosinophils # (Auto) 0.1, Basophils # (Auto) 0.0, Nucleated Red Blood Cells % (auto) 0.0, Urine Color STRAW, Urine Appearance CLEAR, Urine pH 6.0, Urine Specific [place] 1.003, Urine Protein NEGATIVE, Urine Glucose (UA) NEGATIVE, Urine Ketones NEGATIVE, Urine Blood NEGATIVE, Urine Nitrite NEGATIVE, Urine Bilirubin NEGATIVE, Urine Urobilinogen 0.2, Urine Leukocyte Esterase NEGATIVE, Urine WBC (Auto) 1, Urine RBC (Auto) 1, Urine Hyaline Casts (Auto) 0, Urine Bacteria (Auto) 1+H, Urine Squamous Epithelial Cells 0, Urine Sperm (Auto) , Anion Gap 7L, Glomerular Filtration Rate 49.6, Calcium Level 8.7L, Aspartate Amino Transf (AST/SGOT) 27, Alanine Aminotransferase (ALT/SGPT) 35, Alkaline Phosphatase 66, Total Bilirubin 0.7, Direct Bilirubin 0.2, Total Creatine Kinase 56, Creatine Kinase MB 2.0, Creatine Kinase MB Relative Index 2.68, Troponin I < 0.02, Total Protein 7.3, Albumin 3.9, Albumin/Globulin Ratio 1.15, Amylase Level 84, Lipase 197 CBC/BMP Laboratory Tests 12/16/18 15:12 Red Blood Count 3.40 L, Mean Corpuscular Volume 102.4 H, Mean Corpuscular Hemoglobin 33.5 H, Mean Corpuscular Hemoglobin Concent 32.8, Red Cell Distribution Width 13.6, Neutrophils (%) (Auto) 53.0, Lymphocytes (%) (Auto) 36.3, Monocytes (%) (Auto) 7.8 H, Eosinophils (%) (Auto) 1.9, Basophils (%) (Auto) 0.6, Neutrophils # (Auto) 3.6, Lymphocytes # (Auto) 2.5, Monocytes # (Auto) 0.5, Eosinophils # (Auto) 0.1, Basophils # (Auto) 0.0 Microbiology Microbiology 12/16/18 Blood Culture, Received Pending 12/16/18 Blood Culture, Received Pending 12/16/18 Respiratory Virus Panel (PCR) (JOYCE) - Final, Complete Home Medications Scheduled Allopurinol (Zyloprim) 300 Mg Tab, 300 MG PO DAILY Amlodipine Besylate (Amlodipine Besylate) 2.5 Mg Tab, 2.5 MG PO DAILY Aspirin (Aspirin 81) 81 Mg Tab, 81 MG PO QHS Calcium/Vitamin D (Calcium 500/Vitamin D 500-125 mg-Unit) 1 Tab Tab, 500 MG PO BID Cyanocobalamin (B-12) 1,000 Mcg Tab, 1,000 MCG PO BID Levothyroxine Sodium (Synthroid) 100 Mcg Tab, 100 MCG PO DAILY TAKES FIRST, BEFORE OTHER MORNING MEDS Lisinopril (Lisinopril) 5 Mg Tab, 5 MG PO DAILY Loperamide Hcl (Imodium A-D) 2 Mg Tab, 2 MG PO DAILY TAKES AFTER METAMUCIL Metformin Hydrochloride (Metformin HCl) 1,000 Mg Tab, 1,000 MG PO BID Oxybutynin Chloride (Oxybutynin Chloride) 5 Mg Tab, 5 MG PO DAILY Psyllium (Metamucil Original Textur) 48.57 % Pow, 1 PKT PO DAILY Allergies Coded Allergies: trimethoprim (Verified Allergy, Intermediate, 12/16/18) Sulfa (Sulfonamide Antibiotics) (Verified Adverse Reaction, Mild, N/V, 12/16/18) TAPE (Verified Adverse Reaction, Mild, N/V, 12/16/18) sulfamethoxazole (Verified Adverse Reaction, Mild, N/V, 12/16/18) RADHA SALAS MD Dec 16, 2018 19:40
[2018-12-16] MEDS ORDERED: NS 500 ML IV ONE (19:45)
[2018-12-16] MEDS ORDERED: AMLO2.5T3 PO (19:53)
[2018-12-16] MEDS ORDERED: META28.32 PO (19:54)
[2018-12-16] MEDS ORDERED: META48.53 PO (19:54)
[2018-12-16] MEDS ORDERED: IMOD2TAB16 PO (19:55)
[2018-12-16] MEDS ORDERED: GLUCOSE 4 GM CHEW TABLET PO PRN (20:30)
[2018-12-16] MEDS ORDERED: GLUCAGON FOR INJ 1 MG VIAL (J1610) SC PRN (20:30)
[2018-12-16] MEDS ORDERED: DEXTROSE 50% 50 ML SYRINGE IV PRN (20:30)
[2018-12-16] MEDS ORDERED: ASPIRIN 81 MG ENTERIC TAB PO SCH (21:00)
[2018-12-16] MEDS ORDERED: HumaLOG INSULIN (NovoLOG) PER UNIT SC SCH (21:00)
[2018-12-16 22:15] VITALS: BP 159/78
[2018-12-16] MEDS: CALCIUM/VITAMIN D 500 MG TAB PO SCH (22:42)
[2018-12-16] MEDS: CYANOCOBALAMIN 500 MCG TAB PO SCH (22:43)
[2018-12-17 02:00] VITALS: BP 142/70
[2018-12-17] MEDS ORDERED: ACETAMINOPHEN TAB 650MG DOSE (2X325MG) PO PRN (04:15)
[2018-12-17 06:00] VITALS: BP 129/62
[2018-12-17] MEDS ORDERED: LEVOTHYROXINE 100MCG TABLET (0.1MG) PO SCH (06:00)
[2018-12-17 06:08] LABS: MEAN CORPUSCULAR HEMOGLOBIN 34.2 pg (27.0-33.0); MEAN CORPUSCULAR HGB CONC 33.3 g/dl (32.0-36.5); MEAN CORPUSCULAR VOLUME 102.7 fl (80.0-96.0); PLATELET COUNT, AUTOMATED 341 10^3/uL (150-450); RED BLOOD COUNT 2.92 10^6/uL (4.00-5.40); WHITE BLOOD COUNT 6.8 10^3/uL (4.0-10.0)
[2018-12-17 06:27] LABS: CALCIUM LEVEL 8.6 MG/DL (8.8-10.2); CREATININE FOR GFR 1.09 MG/DL (0.55-1.30); GLOMERULAR FILTRATION RATE 51.2 (>32); POTASSIUM SERUM 4.2 MEQ/L (3.5-5.1)
[2018-12-17] MEDS: HumaLOG INSULIN (NovoLOG) PER UNIT SC SCH ×2 (07:30→12:36)
[2018-12-17 09:00] VITALS: BP 129/62
[2018-12-17] MEDS: CALCIUM/VITAMIN D 500 MG TAB PO SCH (09:00)
[2018-12-17] MEDS ORDERED: LOPERAMIDE 2 MG CAP PO SCH (09:00)
[2018-12-17] MEDS ORDERED: ALLOPURINOL 300 MG TAB PO SCH (09:00)
[2018-12-17] MEDS ORDERED: METAMUCIL (PSYLLIUM) PACKET PO SCH (09:00)
[2018-12-17] MEDS ORDERED: LISINOPRIL 5 MG TAB PO SCH (09:00)
[2018-12-17] MEDS: CYANOCOBALAMIN 500 MCG TAB PO SCH (09:00)
[2018-12-17 10:00] VITALS: BP 125/75
--- NOTE | 2018-12-17 10:24 | DSES ---
DATE OF ADMISSION: 12/16/2018 DATE OF DISCHARGE: HISTORY: This is an 83-year-old female patient who follows with Dr. Jiang in the outpatient setting with a history of diabetes and hypertension, who presented with dizziness and unsteady gait and she was dizzy at home. This morning upon arrival to the emergency room she was given a dose of meclizine and her symptoms were feeling much better. She was admitted to the hospital for vertigo with unsteady gait. During her hospitalization, she has remained medically stable. Head CT scan was done which was negative. She is being seen by physical therapy this morning and as long as is felt to be discharge, we anticipate her returning home. She has had no recurrence of her dizziness since receiving her dose of meclizine. DISCHARGE DIAGNOSES: Include: Vertigo. Unsteady gait. Hypertension. Chronic kidney disease stage III. DISCHARGE MEDICATIONS: Include: - allopurinol 300 mg daily - amlodipine 2.5 mg daily - aspirin 81 mg daily - calcium 500/125 one tablet twice daily - vitamin B12 1000 mcg by mouth twice a day - Synthroid 100 mcg by mouth daily - lisinopril 5 mg daily - loperamide 2 mg by mouth daily - metformin 1000 mg by mouth twice a day - oxybutynin 5 mg daily - Metamucil one packet by mouth daily DISCHARGE PLAN: Follow-up with her primary care physician in one week. Activity should be as tolerated. Diet should be low cholesterol, low fat.
== END 2018-12-17 13:40 | disposition home or self-care (01) ==
LOC: M ED 14:49 → M ED INP 20:20 → M MSPAV 22:20
PROVIDERS: ADMIT Student in an Organized Health Care Education/Training Program; ATTEND Family Medicine
DX: R42 Dizziness and giddiness (principal); R26.81 Unsteadiness on feet; I12.9 Hypertensive chronic kidney disease with stage 1 through stage 4 chronic kidney disease, or unspecified chronic kidney disease; N18.3 Chronic kidney disease, stage 3 (moderate); Z79.82 Long term (current) use of aspirin; E05.90 Thyrotoxicosis, unspecified without thyrotoxic crisis or storm; Z79.84 Long term (current) use of oral hypoglycemic drugs; Z79.899 Other long term (current) drug therapy; Z88.2 Allergy status to sulfonamides; K57.90 Diverticulosis of intestine, part unspecified, without perforation or abscess without bleeding
CPT/HCPCS: 36415; 70450; 71046; 80048; 80076; 81001; 82150; 82550; 82553; 83690; 84484; 85025; 85027; 87040; 87486; 87581; 87633; 87798; 93005; 93041; 96360; 96361; 97112; 97116; 97161; 97530; 99285; G0378

== ENCOUNTER → 2019-01-29 | Outpatient (REF) | payer MEDICARE ==
[~2019-01-29] MED LIST changes: +AMLO2.5T3 PO; +IMOD2TAB16 PO; +META48.53 PO
[2019-01-29 12:32] LABS: HEMATOCRIT 35.1 % (36.0-47.0); HEMOGLOBIN 11.4 g/dl (12.0-15.5); MEAN CORPUSCULAR HEMOGLOBIN 34.7 pg (27.0-33.0); MEAN CORPUSCULAR HGB CONC 32.5 g/dl (32.0-36.5); MEAN CORPUSCULAR VOLUME 106.7 fl (80.0-96.0); PLATELET COUNT, AUTOMATED 511 10^3/uL (150-450); RED BLOOD COUNT 3.29 10^6/uL (4.00-5.40); WHITE BLOOD COUNT 8.8 10^3/uL (4.0-10.0)
[2019-01-29 12:52] LABS: ALBUMIN 4.1 GM/DL (3.2-5.2); ALT/SGPT 26 U/L (12-78); BILIRUBIN,TOTAL 0.6 MG/DL (0.2-1.0); BLOOD UREA NITROGEN 30 MG/DL (7-18); CALCIUM LEVEL 9.8 MG/DL (8.8-10.2); CARBON DIOXIDE LEVEL 22 MEQ/L (21-32); CHLORIDE LEVEL 106 MEQ/L (98-107); CHOLESTEROL LEVEL 155 MG/DL (<200); CREATININE FOR GFR 1.19 MG/DL (0.55-1.30); FREE T4 1.41 NG/DL (0.76-1.46); GLOMERULAR FILTRATION RATE 46.2 (>32); GLUCOSE, FASTING 127 MG/DL (70-100); HDL CHOLESTEROL 61 MG/DL (>40); LDL CHOLESTEROL 78 MG/DL (<100); NON-HDL-C 94 MG/DL; POTASSIUM SERUM 5.6 MEQ/L (3.5-5.1); SODIUM LEVEL 137 MEQ/L (136-145); TOTAL PROTEIN 7.4 GM/DL (6.4-8.2); TRIGLYCERIDES LEVEL 81 MG/DL (<150); VITAMIN B12 LEVEL > 2000 PG/ML (247-911)
[2019-01-29 17:40] LABS: HEMOGLOBIN A1c 5.7 %
== END ==
LOC: M SFHCADAM 09:04
PROVIDERS: ATTEND Family Medicine
DX: N18.3 Chronic kidney disease, stage 3 (moderate) (principal); D63.1 Anemia in chronic kidney disease; E03.9 Hypothyroidism, unspecified; E11.9 Type 2 diabetes mellitus without complications; E78.2 Mixed hyperlipidemia; D51.9 Vitamin B12 deficiency anemia, unspecified

== ENCOUNTER → 2019-07-18 | Outpatient (REF) | payer MEDICARE ==
[~2019-07-18] MED LIST changes: +CALCTAB41 PO; +LOPE1CAP5 PO
[2019-07-18 12:58] LABS: HEMATOCRIT 34.2 % (36.0-47.0); HEMOGLOBIN 11.3 g/dl (12.0-15.5); MEAN CORPUSCULAR HEMOGLOBIN 34.8 pg (27.0-33.0); MEAN CORPUSCULAR VOLUME 105.2 fl (80.0-96.0); PLATELET COUNT, AUTOMATED 459 10^3/uL (150-450); RED BLOOD COUNT 3.25 10^6/uL (4.00-5.40); WHITE BLOOD COUNT 7.7 10^3/uL (4.0-10.0)
[2019-07-18 13:19] LABS: HEMOGLOBIN A1c 5.8 %
[2019-07-18 13:26] LABS: CALCIUM LEVEL 9.2 MG/DL (8.8-10.2); CREATININE FOR GFR 1.23 MG/DL (0.55-1.30); GLOMERULAR FILTRATION RATE 44.4 (>32)
[2019-07-18 13:29] LABS: PERCENT SATURATION 22.9 % (13.2-45.0)
[2019-07-18 13:36] LABS: CREATININE, URINE 17.3 MG/DL; MALB URINE SIEMENS 12.7 MG/L; MAU/CREAT RATIO 73.4 MCG/MG (0.0-30.0)
[2019-07-18 13:37] LABS: FOLATE 8.4 NG/ML
== END ==
LOC: M SFHCADAM 08:02
PROVIDERS: ATTEND Family Medicine
DX: R42 Dizziness and giddiness (principal); E11.9 Type 2 diabetes mellitus without complications
CPT/HCPCS: 80048; 82043; 82607; 82728; 82746; 83036; 83550; 85027; 85046; G0463

== ENCOUNTER 2019-07-30 06:01 | Day surgery (SDC) | payer MEDICARE ==
[~2019-07-30] VITALS: Ht 160 cm; Wt 59.9 kg
[~2019-07-30 06:01] MED LIST changes: +LIDOCAINE 1% MDV 20ML VIAL SQ PRN
[2019-07-30] MEDS ORDERED: dexameTHASONE 4 MG/ML 1ML VIAL (J1100) As Ordered ONE (06:18)
[2019-07-30] MEDS ORDERED: ROCURONIUM BROMIDE 50 MG/5 ML VIAL As Ordered ONE (06:18)
[2019-07-30] MEDS ORDERED: LIDOCAINE 2% INJ 100 MG/5 ML SDV (FOR ANES.) As Ordered ONE (06:18)
[2019-07-30] MEDS ORDERED: ONDANSETRON 4MG/2ML VIAL (J2405) As Ordered ONE (06:18)
[2019-07-30] MEDS ORDERED: PROPOFOL 200 MG/20 ML VIAL As Ordered ONE (06:18)
[2019-07-30] MEDS ORDERED: fentaNYL 250 MCG/5 ML INJECTION (J3010) As Ordered ONE (06:22)
[2019-07-30] MEDS ORDERED: MIDAZOLAM INJ 2 MG/2 ML VIAL (J2250) As Ordered ONE (06:22)
[2019-07-30] MEDS ORDERED: LR 1,000 ML IV ONE (07:00)
[2019-07-30] MEDS ORDERED: ceFAZolin SOD 1 GM in D5W MINI-BAG PLUS 50 ML IV ONE (07:00)
[2019-07-30] MEDS ORDERED: BUPIVACAINE LIPOSOME/PF 1.3% 20ML VIAL (13.3MG/ML)(EXPAREL)(C9290 PER1MG) As Ordered ONE ×2 (07:08→07:09)
[2019-07-30] MEDS ORDERED: BUPIVACAINE/EPIN 0.25% 30 ML VIAL As Ordered ONE (07:08)
[2019-07-30] MEDS ORDERED: BUPIVACAINE HCL 0.25% 10 ML VIAL As Ordered ONE (07:08)
--- NOTE | 2019-07-30 08:47 | RO ---
DATE OF PROCEDURE: 07/30/2019 PREOPERATIVE DIAGNOSIS: Incisional hernia at the inferior umbilicus. POSTOPERATIVE DIAGNOSIS: Incisional hernia at the inferior umbilicus. PROCEDURE: Incisional hernia repair with Proceed ventral patch. SURGEON: Miguel Angel Stephens MD HOME STAGER: ANESTHESIA: General endotracheal anesthesia. ESTIMATED BLOOD LOSS: Minimal. FLUIDS: Crystalloid. BRIEF PROCEDURE SUMMARY: The patient was brought to the operating room and was given general anesthesia. After adequate anesthesia and preoperative antibiotics were given, the patient was prepped and draped in usual sterile fashion. Next, an incision starting just inferior to the umbilicus on the previous old incision was made with skin knife. Electrocautery was used to cut through dermis, underlying subcutaneous tissue down to the hernia sac itself. Dissected this to the level of the fascia and then transected the hernia sac at the level of the fascia. There was omentum that was adherent on the posterior aspect of the peritoneum in this area and that was taken down with electrocautery and eventually once that was taken down then the fascial defect, which was probably in a transverse manner 1.8 cm at most, very attenuated the muscle on this area. Mostly given her advanced age and some sarcopenia issues, but in general thus at this time the Proceed ventral patch was placed in the peritoneal cavity and making sure it was abutting circumferentially the peritoneum the tails of mesh were sutured to the fascia and then the incision was closed transversely with two [id number] #0 Ethibond sutures. Exparel as well as Marcaine was inserted into the fascia as well as the subcutaneous tissue circumferentially and the incision was closed in two layers with #3-0 Vicryl deep layer, dermal layer and #4-0 Vicryl subcuticular. Steri-Strips and a dry sterile dressing was applied. The patient was awakened from anesthesia, extubated, brought to the recovery room awake, alert and hemodynamically stable. Sponge and needle counts correct times two.
[2019-07-30] MEDS ORDERED: LR 1,000 ML IV SCH ×2 (09:15→09:30)
[2019-07-30] MEDS ORDERED: ONDANSETRON 4MG/2ML VIAL (J2405) IV PRN ×2 (09:15→09:30)
[2019-07-30] MEDS ORDERED: fentaNYL 100 MCG/2 ML INJECTION (J3010) IV PRN (09:15)
[2019-07-30] MEDS ORDERED: oxyCODONE 5MG TAB PO PRN (09:15)
[2019-07-30] MEDS ORDERED: NORCO, ANEXSIA 5/325MG TABLET (HYDROcodone/ACETAMINOPHEN) PO PRN (09:30)
[2019-07-30 10:45] VITALS: BP 145/71
== END 2019-07-30 10:46 | disposition home or self-care (01) ==
LOC: M SDC 06:01
PROVIDERS: ATTEND Surgery
DX: K43.9 Ventral hernia without obstruction or gangrene (principal); I10 Essential (primary) hypertension; E11.9 Type 2 diabetes mellitus without complications; Z79.84 Long term (current) use of oral hypoglycemic drugs; Z79.899 Other long term (current) drug therapy; Z88.2 Allergy status to sulfonamides; Z88.8 Allergy status to other drugs, medicaments and biological substances
CPT/HCPCS: 49560; 88302; C1781; C9290; J0690; J1100; J2250; J2405; J3010

== ENCOUNTER → 2019-10-15 | Outpatient (REF) | payer MEDICARE ==
[~2019-10-15] MED LIST changes: -LIDOCAINE 1% MDV 20ML VIAL SQ PRN
[2019-10-15 18:27] LABS: BILIRUBIN,TOTAL 0.5 MG/DL (0.2-1.0); CALCIUM LEVEL 9.6 MG/DL (8.8-10.2); CREATININE FOR GFR 1.31 MG/DL (0.55-1.30); GLOMERULAR FILTRATION RATE 41.3 (>32); POTASSIUM SERUM 4.8 MEQ/L (3.5-5.1); TOTAL PROTEIN 7.5 GM/DL (6.4-8.2)
[2019-10-15 18:29] LABS: BASO # 0.1 10^3/uL (0.0-0.2); BASO % 0.7 % (0.0-1.0); EOS # 0.4 10^3/uL (0.0-0.5); EOS % 5.1 % (0.0-3.0); HEMOGLOBIN 11.2 g/dl (12.0-15.5); LYMPH # 3.3 10^3/uL (1.5-5.0); LYMPH % 38.5 % (24.0-44.0); MEAN CORPUSCULAR HEMOGLOBIN 33.3 pg (27.0-33.0); MEAN CORPUSCULAR HGB CONC 31.1 g/dl (32.0-36.5); MEAN CORPUSCULAR VOLUME 107.1 fl (80.0-96.0); MONO # 0.7 10^3/uL (0.0-0.8); NEUTROPHILS % 47.2 % (36.0-66.0); PLATELET COUNT, AUTOMATED 443 10^3/uL (150-450); RED BLOOD COUNT 3.36 10^6/uL (4.00-5.40); WHITE BLOOD COUNT 8.5 10^3/uL (4.0-10.0)
== END ==
LOC: M SFHCADAM 14:33
PROVIDERS: ATTEND Physician Assistant
DX: R19.7 Diarrhea, unspecified (principal)

== ENCOUNTER → 2019-10-24 | Outpatient (REF) | payer MEDICARE ==
[2019-10-24 14:02] LABS: CALCIUM LEVEL 9.1 MG/DL (8.8-10.2); CREATININE FOR GFR 1.15 MG/DL (0.55-1.30); POTASSIUM SERUM 4.4 MEQ/L (3.5-5.1)
== END ==
LOC: M SFHCADAM 10:29
PROVIDERS: ATTEND Physician Assistant
DX: N17.9 Acute kidney failure, unspecified (principal)

== ENCOUNTER → 2020-03-20 | Outpatient (REF) | payer MEDICARE ==
[~2020-03-20] MED LIST changes: +AMLO1TAB24 PO; -AMLO5TAB6 PO
[2020-03-20 12:56] LABS: BASO # 0.1 10^3/uL (0.0-0.2); BASO % 0.5 % (0.0-1.0); EOS # 0.2 10^3/uL (0.0-0.5); EOS % 2.2 % (0.0-3.0); HEMATOCRIT 32.5 % (36.0-47.0); HEMOGLOBIN 10.5 g/dl (12.0-15.5); LYMPH # 2.7 10^3/uL (1.5-5.0); LYMPH % 29.4 % (24.0-44.0); MEAN CORPUSCULAR HGB CONC 32.3 g/dl (32.0-36.5); MEAN CORPUSCULAR VOLUME 105.2 fl (80.0-96.0); MONO # 0.7 10^3/uL (0.0-0.8); MONO % 7.9 % (0.0-5.0); NEUTROPHILS # 5.4 10^3/uL (1.5-8.5); NEUTROPHILS % 59.6 % (36.0-66.0); PLATELET COUNT, AUTOMATED 436 10^3/uL (150-450); RED BLOOD COUNT 3.09 10^6/uL (4.00-5.40); WHITE BLOOD COUNT 9.1 10^3/uL (4.0-10.0)
== END ==
LOC: M SFHCADAM 08:34
PROVIDERS: ATTEND Family Medicine
DX: R22.1 Localized swelling, mass and lump, neck (principal)

== ENCOUNTER → 2020-03-20 | Outpatient (CLI) | payer MEDICARE ==
--- NOTE | 2020-03-20 16:29 | REP ---
REASON: Palpable mass, right submandibular region. Multiple ultrasonographic images show two complex cystic and solid nodules, one 3.1 x 1.8 x 2.3 cm, the other 1 x 1.1 x 1 cm. IMPRESSION: Neck masses as described above. Contrast-enhanced CT as recommended. Electronically Signed by Faraz Bryant DO 03/20/2020 04:55 P
== END ==
LOC: M LRY 11:46
PROVIDERS: ATTEND Family Medicine
DX: R22.1 Localized swelling, mass and lump, neck (principal)

== ENCOUNTER → 2020-03-23 | Outpatient (REF) | payer MEDICARE ==
[2020-03-23 14:41] LABS: ALBUMIN 3.3 GM/DL (3.2-5.2); BILIRUBIN,TOTAL 0.4 MG/DL (0.2-1.0); CALCIUM LEVEL 9.2 MG/DL (8.8-10.2); CREATININE FOR GFR 1.21 MG/DL (0.55-1.30); GLOMERULAR FILTRATION RATE 45.2 (>32); TOTAL PROTEIN 6.6 GM/DL (6.4-8.2)
== END ==
LOC: M SFHCADAM 09:26
PROVIDERS: ATTEND Family Medicine
DX: R22.1 Localized swelling, mass and lump, neck (principal)

== ENCOUNTER → 2020-03-24 | Outpatient (CLI) | payer MEDICARE ==
[~2020-03-24] MED LIST changes: +ISOVUE-370 76% 100ML VIAL As Ordered ONE
--- NOTE | 2020-03-24 11:31 | REPVR ---
PROCEDURE INFORMATION: Exam: CT Neck With Contrast Exam date and time: 03/24/2020 10:33 AM Age: 84 years old Clinical indication: Mass, lump, or swelling in neck; Additional info: Neck mass TECHNIQUE: Imaging protocol: Computed tomography images of the neck with intravenous contrast. Radiation optimization: All CT scans at this facility use at least one of these dose optimization techniques: automated exposure control; mA and/or kV adjustment per patient size (includes targeted exams where dose is matched to clinical indication); or iterative reconstruction. Contrast material: ISOVIEW 370; Contrast volume: 75 ml; Contrast route: INTRAVENOUS (IV); COMPARISON: US SOFT TISSUE HEAD AND NECK 03/20/2020 2:48 PM FINDINGS: Nasopharynx: Unremarkable. Oropharynx: Unremarkable. No significant tonsillar enlargement. Hypopharynx: Unremarkable. Larynx: Unremarkable. Normal epiglottis. Retropharyngeal space: Unremarkable. Submandibular/Parotid glands: There is a slightly ill-defined 2.5 x 2.8 x 3.6 cm mass within the deep aspect of the right parotid gland. Mass is located immediately superficial to the right internal carotid artery and internal jugular vein. There is mild edema adjacent to this mass. Contiguous lobulation along the caudal aspect of the dominant mass, measuring 1.3 x 1.2 0.5 cm. This extends into the right submandibular space, closely approximating the right submandibular gland. Hypodensity within the central portion of the dominant mass and the caudal lobulation, which may reflect central necrosis or a cystic component. Thyroid: Normal. No enlarged or calcified nodules. Lymph nodes: Unremarkable. No lymphadenopathy. Trachea: Visualized trachea is unremarkable. Lungs: Unremarkable as visualized. Bones/joints: Degenerative change of the spine. Vasculature: Mild atherosclerotic changes. Soft tissues: See above. 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 Primary differential consideration includes a Warthin tumor or other parotid neoplasm, necrotic lymph node, or an inflamed/infected sialocele or first branchial cleft cyst. Electronically signed by: Patricia Reed On 03/24/2020 11:31:49 AM
== END ==
LOC: M RAD 09:34
PROVIDERS: ATTEND Family Medicine
DX: R22.1 Localized swelling, mass and lump, neck (principal)
CPT/HCPCS: 70491; Q9967

== ENCOUNTER → 2020-07-17 | Outpatient (REF) | payer MEDICARE ==
[~2020-07-17] MED LIST changes: -ISOVUE-370 76% 100ML VIAL As Ordered ONE
[2020-07-17 17:16] LABS: HEMOGLOBIN 11.7 g/dl (12.0-15.5); MEAN CORPUSCULAR HEMOGLOBIN 33.9 pg (27.0-33.0); MEAN CORPUSCULAR HGB CONC 32.5 g/dl (32.0-36.5); MEAN CORPUSCULAR VOLUME 104.3 fl (80.0-96.0); PLATELET COUNT, AUTOMATED 483 10^3/uL (150-450); RED BLOOD COUNT 3.45 10^6/uL (4.00-5.40); WHITE BLOOD COUNT 7.3 10^3/uL (4.0-10.0)
[2020-07-17 17:30] LABS: ALBUMIN 3.9 GM/DL (3.2-5.2); ALT/SGPT 30 U/L (12-78); BILIRUBIN,TOTAL 0.6 MG/DL (0.2-1.0); BLOOD UREA NITROGEN 20 MG/DL (7-18); CALCIUM LEVEL 9.4 MG/DL (8.8-10.2); CARBON DIOXIDE LEVEL 27 MEQ/L (21-32); CHLORIDE LEVEL 105 MEQ/L (98-107); CREATININE FOR GFR 1.13 MG/DL (0.55-1.30); GLOMERULAR FILTRATION RATE 48.8 (>32); GLUCOSE, FASTING 139 MG/DL (70-100); POTASSIUM SERUM 4.4 MEQ/L (3.5-5.1); SODIUM LEVEL 138 MEQ/L (136-145); TOTAL PROTEIN 7.2 GM/DL (6.4-8.2)
[2020-07-17 17:43] LABS: FOLATE 10.6 NG/ML; VITAMIN B12 LEVEL > 2000 PG/ML
== END ==
LOC: M SFHCADAM 13:32
PROVIDERS: ATTEND Physician Assistant
DX: I87.2 Venous insufficiency (chronic) (peripheral) (principal); D63.1 Anemia in chronic kidney disease

== ENCOUNTER → 2021-04-30 | Outpatient (REF) | payer MEDICARE ==
[~2021-04-30] MED LIST changes: -LISI-542 PO; +LISI-898 PO; +LISI10TA22 PO; -LISI10TA4 PO
[2021-04-30 13:43] LABS: HEMATOCRIT 39.3 % (36.0-47.0); MEAN CORPUSCULAR HEMOGLOBIN 33.9 pg (27.0-33.0); MEAN CORPUSCULAR HGB CONC 33.1 g/dl (32.0-36.5); MEAN CORPUSCULAR VOLUME 102.3 fl (80.0-96.0); PLATELET COUNT, AUTOMATED 467 10^3/uL (150-450); RED BLOOD COUNT 3.84 10^6/uL (4.00-5.40); WHITE BLOOD COUNT 8.4 10^3/uL (4.0-10.0)
[2021-04-30 14:57] LABS: ALBUMIN 3.7 GM/DL (3.2-5.2); BILIRUBIN,TOTAL 0.7 MG/DL (0.2-1.0); CALCIUM LEVEL 9.1 MG/DL (8.8-10.2); CHOLESTEROL RISK RATIO 2.508 (<5); CREATININE FOR GFR 1.2 MG/DL (0.55-1.30); FREE T4 1.34 NG/DL (0.76-1.46); GLOMERULAR FILTRATION RATE 45.6 (>32); POTASSIUM SERUM 4.7 MEQ/L (3.5-5.1); THYROID STIMULATING HORMONE 2.08 uIU/ML (0.358-3.740); TOTAL PROTEIN 7.3 GM/DL (6.4-8.2)
== END ==
LOC: M SFHCADAM 09:16
PROVIDERS: ATTEND Family Medicine
DX: R41.3 Other amnesia (principal); D51.9 Vitamin B12 deficiency anemia, unspecified; I11.9 Hypertensive heart disease without heart failure; E11.9 Type 2 diabetes mellitus without complications; E03.9 Hypothyroidism, unspecified

== ENCOUNTER → 2021-07-22 | Outpatient (CLI) | payer MEDICARE ==
[~2021-07-22] MED LIST changes: +ALLO300T2 PO
== END ==
LOC: M LABSMTC 09:39
PROVIDERS: ATTEND Anesthesiology
DX: Z01.818 Encounter for other preprocedural examination (principal); Z11.52 Encounter for screening for COVID-19

== ENCOUNTER 2021-07-27 10:21 | Day surgery (SDC) | payer MEDICARE ==
[~2021-07-27] VITALS: Ht 160 cm; Wt 60.7 kg
[~2021-07-27 10:21] MED LIST changes: +LR 1,000 ML IV ONE
--- OUTSIDE RECORDS SUMMARY | 2021-07-27 10:27 | CCD | Continuity of Care Document ---
Author Author Anisha STEPHENS MD Organization Unknown Address [address] [facility] [address] [place] [address] Phone [phone] Care Team Providers Care Assistant Manager Name Role Phone AUTM Unavailable Glory Dalton D.O. AUTM [phone] Problems Description No Active Problems Social History Type Date Description Comments Sex Unknown ETOH Use Denies alcohol use Tobacco Use Start: Unknown Denies Smoking Recreational Drug Use Denies Drug Use Allergies, Adverse Reactions, Alerts Active Allergies Criticality Reaction | Severity Comments Date Bactrim Unable to assess criticality Nausea and Vomiting 07/30/2013 Tape Unable to assess criticality RASH 07/30/2013 Medications Active Medications SIG Qnty Indications Ordering Provide r Date Imodium A-D 2mg Tablets ta ke 1 tab prn He Marcos MD 11/02/2016 Metformin HCL ER 1000mg Tablets ER 24HR po daily 60tabs Unknown Allopurinol 300mg Tablets 1 p o qd Unknown Levothyroxine Sodium 100mcg Tablet s 1 po qd 30tabs Unknown Oxybutynin Chloride ER 5mg Tablets ER 24HR 1 po qd 30tabs Unknown Aspir-[address] 1 po qd Unknown Vitamin B-12 CR 1000mcg Tablets ER 1 qd Unknown Calcium 600 + D [id number] Tab lets 1 po bid Unknown Amlodipine Besylate 2.5mg Tablets 1 by mouth every day Unknown Metamucil Smooth Texture 28.3% Pow jolie daily Unknown Immunizations Description No Information Available Vital Signs Date Vital Result Comment 05/31/2021 3:55pm BP Systolic 154 mmHg BP Diastolic 88 mmHg Heart Rate 91 /min Body Temperature 99.1 F Height 63 inches 5'3" Weight 134.12 lb BMI (Body Mass Index) 23.8 kg/m2 [place] Body Weight 115 lb Weight 60.839 kg BSA (Body Surface Area) 1.63 m2 05/05/2020 8:13am Height 63 inches 5'3" Weight 138.00 lb BMI (Body Mass Index) 24.4 kg/m2 [place] Body Weight 115 lb Weight 62.597 kg BSA (Body Surface Area) 1.65 m2 Results Description No Information Available Procedures Description No Information Available Medical Devices Description No Information Available Encounters Description No Information Available Assessments Description No Information Available Plan of Treatment No Information Available Functional Status Description No Information Available Mental Status Description No Information Available Referrals Refer to Reason for Referral Status Appt Date Miguel Angel Stephens JR, MD EPIDERMOID CYST ON BACK Created [address] [address] [phone]
--- OUTSIDE RECORDS SUMMARY | 2021-07-27 10:27 | CCD ---
Author Author [facility] Organization [facility] Address Unknown Phone Unavailable Care Team Providers Care Operations Vocational Instructor Name Role Phone Melvin Jiang Unavailable PROBLEMS Type Condition ICD9-CM Code [id number] Code Onset Dates Condition S tatus W/U Status Risk SNOMED Code Notes Problem Personal history of other infectious and parasitic disease s Z86.19 Active confirmed 624771379 Problem Vitamin B12 deficiency anemia, unspecified D51.9 Active confirmed 81147959 Problem H/O Clostridium difficile infection Z86.19 Acti ve confirmed 037641119 Problem Encounter for immunization Z23 Active confirmed 781909591 Problem 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 Active confirmed 834006176 Problem Urinary tract infection due to Proteus N39.0 A ctive confirmed 305293332 Problem Hypertensive heart disease without heart failure I 11.9 Active confirmed 86600538 Problem Proteus (mirabilis) (morgani i) as the cause of diseases classified elsewhere B96.4 Active confirmed 276545287 Problem Macrocytic anemia D53.9 Active confirmed 83 433490 Problem Anemia in chronic kidney disease D63.1 Active confirmed 748463916804190 Problem CKD (chronic kidney disease), stage III N18.3 Active confirmed 780485444 Problem Diverticulitis large intestine w/o perfo ration or abscess w/o bleeding K57.32 Active confirmed 6670515 Problem Dizziness R42 Active confirmed 587653813 Problem Type 2 diabetes mellitus without complications E11 .9 Active confirmed 113953929 Problem Memory loss R41.3 Active confirmed 20168091 Problem Medicare annual wellness visit, subsequent Z00.00 Active confirmed 521015375 Problem Mixed hyperlipidemia E78.2 Active confirmed 198187516 Problem Hypothyroidism, unspecified E03.9 Active confirmed 56058345 Problem Age-related nuclear cataract of left eye H25.12 Active confirmed 759924180940770 Problem Essential (primary) hypertension I10 Active conf irmed 71798119 Problem Calculus of kidney N20.0 Active confirmed 9 4197880 Problem Venous insufficiency (chronic) (peripheral) I87.2 Active confirmed 30627212304635017 ALLERGIES Allergen (clinical drug ingredient) Drug/Non Drug Allergy do cumented on EMR Reaction Allergy Type Onset Date Status Tape Unknown Non Drug Allergy Active trimethoprim Trimethoprim([facility] Code:[address]-59) Unknown Drug All ergy Active Requip dizziness Non Drug Allergy Active Sulfacetamide Sod-Sulfur Unknown Drug Allergy Active ENCOUNTERS from 1935 to 2021-06-22 Encounter Location Date Provider Diagnosis [facility] [address] [place] [address] Jun, Melvin Jiang IMMUNIZATIONS Vaccine Route Administration Date Status Zoster 50mcg/0.5mL Shingrix Unknown March 20, 2018 Admi nistered Influenza (High Dose 65 & up) IM Intramuscular Aug 17, 2016 A dministered Influenza (High Dose 65 & up) IM Intramuscular Jul 19, 2017 A dministered Influenza 18 yrs & older Flublok IM Intramuscular Jul 04, 2018 Administered Influenza (High Dose 65 & up) IM Intramuscular Jul 17, 2014 A dministered Influenza (High Dose 65 & up) IM Intramuscular Aug 13, 2015 A dministered Zoster 50mcg/0.5mL Shingrix Unknown January 24, 2018 Admi nistered Influenza 6mo & up Fluzone IM Intramuscular Jun 15, 2010 Admi nistered Zoster 0.65mL Zostavax Unknown Apr 19, 2014 Administe red Pneumococcal Adult 0.5mL Pneumovax 23 IM Intramuscular February 16, 2016 Administered Pneumococcal Adult 0.5mL Pneumovax 23 Unknown Sep 11 04 Administered Pneumococcal 0.5mL Prevnar 13 IM Intramuscular Jul 17, 2014 A dministered Influenza 6mo & up Fluzone Unknown Apr 30, 2014 Admin istered Influenza 6mo & up Fluzone IM Intramuscular Jul 25, 2013 Admi nistered Influenza 6mo & up Fluzone IM Intramuscular Jul 12, 2012 Admi nistered Influenza 6mo & up Fluzone IM Intramuscular Jun 23, 2011 Admi nistered SOCIAL HISTORY Tobacco Use: Social History Observation Description Date Details (start date - stop date) Never Smoker Sex Assigned At : Social History Observation Description Sex Assigned At Unknown Education: Question Answer Notes Level of Education: High School Audit Question Answer Notes Total Score: 0 Interpretation: Alcohol Education Language: Question Answer Notes Languages spoken: Faroese Caodaism: Question Answer Notes Caodaism No sikh beliefs that would impact health care. Sexual Hx: Question Answer Notes Had sex in the last 12 months (vaginal, oral, or anal)? No Have you ever had an STD? No Drug and Alcohol Question Answer Notes Total Score: 0 Interpretation: No problems reported Alcohol Screening: Question Answer Notes Did you have a drink containing alcohol in the past year? No Points 0 Interpretation Negative BMI Care Goal Follow-Up Question Answer Notes Below Normal BMI Follow-Up Dietary education for weight gain Tobacco Use: Question Answer Notes Are you a: never smoker never smoker REASON FOR REFERRAL No Information VITAL SIGNS No information MEDICATIONS Medication SIG (Take, Route, Frequency, Duration) Notes Start Da te End Date Status Imodium A-D 2 MG 1 tablet as needed Orally Daily Active Amlodipine Besylate 2.5 MG Take 1 tablet by mouth once daily for 90 day(s) Active Allopurinol 300 MG 1 tablet Orally once a day for 30 day(s) Active Oxybutynin Chloride 5 MG Take 1 tablet by mouth once daily for 90 day (s) Active Metformin 1000 mg 1 tablet orally Daily for 90 day(s) Active Levothyroxine Sodium 100 MCG 1 tablet every morning on an empty stomach Orally Once a day for 90 day(s) Active Vitamin B-12 1000 MCG 1 tablet Orally Once a day Active Oxybutynin Chloride 5 TAKE 1 TABLET BY MOUTH EVERY DAY for 90 day(s) Active Aspirin 81 MG 1 tablet Orally Once a day Active Amlodipine Besylate 2.5 TAKE 1 TABLET BY MOUTH EVERY DAY for 90 day(s ) Active Calcium 600 + D 600-400 MG-UNIT 1 tablet Orally Twice a day Active PROCEDURES No Information RESULTS No Results REASON FOR VISIT levothyroxine MEDICAL (GENERAL) HISTORY Type Description Date Medical History Hypertension Medical History type 2 diabetes Medical History Hypothyroidism Medical History vitamin D deficiency Medical History kidney stones Medical History diverticulosis Medical History Vit B12 defic--on oral tx Medical History C. 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 11/24 Medical History recurrent proteus UTIs 2016 Medical History macrocytic anemia, mild/chronic--w/u Surgical History FUENTES & BSO Surgical History breast cyst aspiration Surgical History hernia repair X 2 Surgical History colposcopy--nl 08/21 Surgical History cysto/laser lithotripsy rt renal stone 1 10/15 Surgical History stool transplant for c-diff - [facility] 08/13/13,08/27/13,10/15/13 Surgical History Left eye cataract surgery 2017 Surgical History hernia repair 07/2019 Hospitalization History diverticulitis 02/2012 Hospitalization History vertigo 12/2018 Goals Section No Information Health Concerns No Information MEDICAL EQUIPMENT No Information MENTAL STATUS No Information FUNCTIONAL STATUS No Information ASSESSMENTS No Information PLAN OF TREATMENT Medication Medication Name Sig Start Date Stop Date Levothyroxine Sodium 100 MCG 1 tablet every morning on an empty stomach Orally Once a day for 90 day(s) Next Appt Details Provider Name:Melvin Jiang, 2021-07 10:00:00 AM, [address], , [place], [address], Provider Name:Melvin Jiang, 2021-10 09:00:00 AM, [address], , [place], [address], Insurance Providers Payer Name Payer Address Payer Phone Insured Name Patient Relati onship to Insured Coverage Start Date Coverage End Date AETNA MEDICARE AETNA [employer] INSURANCE I[place] [address] [facility] [id number] MARCELA SWANSON self
--- OUTSIDE RECORDS SUMMARY | 2021-07-27 10:27 | CCD ---
Author Author [facility] Organization [facility] Address Unknown Phone Unavailable Care Team Providers Care Hydrogen Plant Operations Manager Name Role Phone Melvin Jiang Unavailable PROBLEMS Type Condition ICD9-CM Code SEC34-YS Code Onset Dates Condition S tatus W/U Status Risk SNOMED Code Notes Problem Personal history of other infectious and parasitic disease s Z86.19 Active confirmed 924798546 Problem Vitamin B12 deficiency anemia, unspecified D51.9 Active confirmed 24314815 Problem H/O Clostridium difficile infection Z86.19 Acti ve confirmed 511722295 Problem Encounter for immunization Z23 Active confirmed 315656232 Problem 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 Active confirmed 468512006 Problem Urinary tract infection due to Proteus N39.0 A ctive confirmed 844887604 Problem Hypertensive heart disease without heart failure I 11.9 Active confirmed 57822284 Problem Proteus (mirabilis) (morgani i) as the cause of diseases classified elsewhere B96.4 Active confirmed 770406736 Problem Macrocytic anemia D53.9 Active confirmed 83 946637 Problem Anemia in chronic kidney disease D63.1 Active confirmed 132400056794425 Problem CKD (chronic kidney disease), stage III N18.3 Active confirmed 761725903 Problem Diverticulitis large intestine w/o perfo ration or abscess w/o bleeding K57.32 Active confirmed 4443069 Problem Dizziness R42 Active confirmed 523748282 Problem Type 2 diabetes mellitus without complications E11 .9 Active confirmed 177012519 Problem Memory loss R41.3 Active confirmed 12059686 Problem Medicare annual wellness visit, subsequent Z00.00 Active confirmed 818241864 Problem Mixed hyperlipidemia E78.2 Active confirmed 747696694 Problem Hypothyroidism, unspecified E03.9 Active confirmed 60011062 Problem Age-related nuclear cataract of left eye H25.12 Active confirmed 817102242319758 Problem Essential (primary) hypertension I10 Active conf irmed 62146981 Problem Calculus of kidney N20.0 Active confirmed 9 7643521 Problem Venous insufficiency (chronic) (peripheral) I87.2 Active confirmed 43306242467178917 ALLERGIES Allergen (clinical drug ingredient) Drug/Non Drug Allergy do cumented on EMR Reaction Allergy Type Onset Date Status trimethoprim Trimethoprim([facility] Code:[address]-89) Unknown Drug All ergy Active Tape Unknown Drug Allergy Active Requip dizziness Drug Allergy Active Sulfacetamide Sod-Sulfur Unknown Drug Allergy Active ENCOUNTERS from 1935 to 2021-07-20 Encounter Location Date Provider Diagnosis [facility] [address] [place] [address] Jul, Melvin Jiang IMMUNIZATIONS Vaccine Route Administration Date Status Zoster 50mcg/0.5mL Shingrix Unknown January 24, 2018 Admi nistered Zoster 50mcg/0.5mL Shingrix Unknown March 20, 2018 Admi nistered Influenza (High Dose 65 & up) IM Intramuscular Jul 19, 2017 A dministered Influenza 18 yrs & older Flublok IM Intramuscular Jul 04, 2018 Administered Influenza (High Dose 65 & up) IM Intramuscular Aug 13, 2015 A dministered Pneumococcal Adult 0.5mL Pneumovax 23 IM Intramuscular February 16, 2016 Administered Influenza (High Dose 65 & up) IM Intramuscular Aug 17, 2016 A dministered Influenza 6mo & up Fluzone IM Intramuscular Jun 15, 2010 Admi nistered Pneumococcal 0.5mL Prevnar 13 IM Intramuscular Jul 17, 2014 A dministered Influenza (High Dose 65 & up) IM Intramuscular Jul 17, 2014 A dministered Zoster 0.65mL Zostavax Unknown Apr 19, 2014 Administe red Pneumococcal Adult 0.5mL Pneumovax 23 Unknown Sep 11 04 Administered Influenza 6mo & up Fluzone Unknown Apr [...] Education Language: Question Answer Notes Languages spoken: Luxembourgish Adventist: Question Answer Notes Adventist No religion beliefs that would impact health care. Sexual [...] 1 tablet as needed Orally Daily Active Levothyroxine Sodium 100 MCG 1 tablet every morning on an empty stomach Orally Once a day for 90 day(s) Active Metformin 1000 mg 1 tablet orally Daily for 90 day(s) Active Amlodipine Besylate 2.5 TAKE 1 TABLET BY MOUTH EVERY DAY for 90 day(s ) Active Aspirin 81 MG 1 tablet Orally Once a day Active Vitamin B-12 1000 MCG 1 tablet Orally Once a day Active Calcium 600 + D 600-400 MG-UNIT 1 tablet Orally Twice a day Active Allopurinol 300 MG Take 1 tablet by mouth once daily for 30 Active Oxybutynin Chloride 5 MG Take 1 tablet by mouth once daily for 90 day (s) Active Amlodipine Besylate 2.5 MG Take 1 tablet by mouth once daily for 90 day(s) Active Oxybutynin Chloride 5 TAKE 1 TABLET BY MOUTH EVERY DAY for 90 day(s) Active PROCEDURES No Information RESULTS No Results REASON FOR VISIT Clearance note MEDICAL (GENERAL) HISTORY Type Description Date Medical History Hypertension Medical History type 2 diabetes Medical History Hypothyroidism Medical History vitamin D deficiency Medical History kidney stones Medical History diverticulosis Medical History Vit B12 defic--on oral tx Medical History C. 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 11/24 Medical History recurrent proteus UTIs 2015 Medical History macrocytic anemia, mild/chronic--w/u Surgical History [...] Medication Name Sig Start Date Stop Date Allopurinol 300 MG Take 1 tablet by mouth once daily for 30 Next Appt Details Provider Name:Melvin Apolinar, 2021-10 09:00:00 AM, [address], , [place], [address], Insurance Providers Payer Name Payer Address Payer Phone Insured Name Patient Relati onship to Insured Coverage Start Date Coverage End Date AETNA MEDICARE AETNA [employer] INSURANCE [employer]Visibility [address] [facility] [id number] MARCELA SWANSON self
--- OUTSIDE RECORDS SUMMARY | 2021-07-27 10:27 | CCD ---
Author Author [facility] Organization 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 Active confirmed 637545983 Problem Urinary tract infection due to Proteus N39.0 A ctive confirmed 303096462 Problem Hypertensive heart disease without heart failure I 11.9 Active confirmed 11361891 Problem Proteus (mirabilis) (morgani i) as the cause of diseases classified elsewhere B96.4 Active confirmed 635856519 Problem Macrocytic anemia D53.9 Active confirmed 83 235110 Problem Anemia in chronic kidney disease D63.1 Active confirmed 024595529760686 Problem CKD (chronic kidney disease), stage III N18.3 Active confirmed 033445203 Problem Diverticulitis large intestine w/o perfo ration or abscess w/o bleeding K57.32 Active confirmed 2071338 Problem Dizziness R42 Active confirmed 465021159 Problem Type 2 diabetes mellitus without complications E11 .9 Active confirmed 778099886 Problem Memory loss R41.3 Active confirmed 79038782 Problem Medicare annual wellness visit, subsequent Z00.00 Active confirmed 562999476 Problem Mixed hyperlipidemia E78.2 Active confirmed 568881195 Problem Hypothyroidism, unspecified E03.9 Active confirmed 15153842 Problem Age-related nuclear cataract of left eye H25.12 Active confirmed 072589909537498 Problem Essential (primary) hypertension I10 Active conf irmed 72632755 Problem Calculus of kidney N20.0 Active confirmed 9 3130256 Problem Venous insufficiency (chronic) (peripheral) I87.2 Active confirmed 49980686575871352 ALLERGIES Allergen (clinical drug ingredient) Drug/Non Drug Allergy do cumented on EMR Reaction Allergy Type Onset Date Status Tape Unknown Non Drug Allergy Active trimethoprim Trimethoprim([facility] Code:[address]-50) Unknown Drug All ergy Active Requip dizziness Non Drug Allergy Active Sulfacetamide Sod-Sulfur Unknown Drug Allergy Active ENCOUNTERS from 1935 to 2021-06-22 Encounter Location Date Provider Diagnosis [facility] [address] [place] [address] Jun, Melvin Jiang IMMUNIZATIONS Vaccine Route [...] Education Language: Question Answer Notes Languages spoken: Yi Roman Catholic: Question Answer Notes Roman Catholic No christianity beliefs that would impact health care. Sexual [...] Information RESULTS No Results REASON FOR VISIT No Information MEDICAL (GENERAL) HISTORY Type Description Date Medical [...] Details Provider Name:Melvin Jiang, 2021-07 10:00:00 AM, [address], , [place], [address], Provider Name:Melvin Jiang, 2021-10 09:00:00 AM, [address], , [place], [address], Insurance Providers Payer Name Payer Address Payer Phone Insured Name Patient Relati onship to Insured Coverage Start Date Coverage End Date AETNA MEDICARE AETNA [employer] INSURANCE [email or web address] [address] [facility] [phone] MARCELA SWANSON self
--- OUTSIDE RECORDS SUMMARY | 2021-07-27 10:27 | CCD ---
Author Author [facility] Organization [facility] Address Unknown Phone Unavailable Care Team Providers Care Maintenance Mechanic Millwright Name Role Phone Melvin Jiang Unavailable PROBLEMS Type Condition ICD9-CM Code XOZ48-IA Code Onset Dates Condition S tatus W/U Status Risk SNOMED Code Notes Problem Personal history of other infectious and parasitic disease s Z86.19 Active confirmed 678610262 Problem Vitamin B12 deficiency anemia, unspecified D51.9 Active confirmed 64166085 Problem H/O Clostridium difficile infection Z86.19 Acti ve confirmed 354349564 Problem Encounter for immunization Z23 Active confirmed 952360125 Problem 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 Active confirmed 517553309 Problem Urinary tract infection due to Proteus N39.0 A ctive confirmed 247197761 Problem Hypertensive heart disease without heart failure I 11.9 Active confirmed 62271102 Problem Proteus (mirabilis) (morgani i) as the cause of diseases classified elsewhere B96.4 Active confirmed 904530969 Problem Macrocytic anemia D53.9 Active confirmed 83 510347 Problem Anemia in chronic kidney disease D63.1 Active confirmed 193608738585742 Problem CKD (chronic kidney disease), stage III N18.3 Active confirmed 527640030 Problem Diverticulitis large intestine w/o perfo ration or abscess w/o bleeding K57.32 Active confirmed 9197794 Problem Dizziness R42 Active confirmed 589137175 Problem Type 2 diabetes mellitus without complications E11 .9 Active confirmed 677016041 Problem Memory loss R41.3 Active confirmed 09713189 Problem Medicare annual wellness visit, subsequent Z00.00 Active confirmed 441265621 Problem Mixed hyperlipidemia E78.2 Active confirmed 229513898 Problem Hypothyroidism, unspecified E03.9 Active confirmed 38075932 Problem Age-related nuclear cataract of left eye H25.12 Active confirmed 567208352201838 Problem Essential (primary) hypertension I10 Active conf irmed 85584261 Problem Calculus of kidney N20.0 Active confirmed 9 5049870 Problem Venous insufficiency (chronic) (peripheral) I87.2 Active confirmed 88093449886786845 ALLERGIES Allergen (clinical drug ingredient) Drug/Non Drug Allergy do cumented on EMR Reaction Allergy Type Onset Date Status trimethoprim Trimethoprim([facility] Code:[address]-75) Unknown Drug All ergy Active Tape Unknown Drug Allergy Active Requip dizziness Drug Allergy Active Sulfacetamide Sod-Sulfur Unknown Drug Allergy Active ENCOUNTERS from 1935 to 2021-07-22 Encounter Location Date Provider Diagnosis [facility] [address] [place] [address] Jul, Melvin Jiang IMMUNIZATIONS Vaccine Route [...] IM Intramuscular Aug 13, 2015 A dministered Influenza (High Dose 65 & [...] Education Language: Question Answer Notes Languages spoken: Greenlandic Caodaism: Question Answer Notes Caodaism No holiness beliefs that would impact health care. Sexual [...] EVERY DAY for 90 day(s ) Active Allopurinol 300 MG Take 1 tablet by mouth once daily for 30 Active Aspirin 81 MG 1 tablet Orally Once a day Active Calcium 600 + D 600-400 MG-UNIT 1 tablet Orally Twice a day Active Amlodipine Besylate 2.5 MG Take 1 tablet by mouth once daily for 90 day(s) Active Oxybutynin Chloride 5 MG Take 1 tablet by mouth once daily for 90 day (s) Active Vitamin B-12 1000 MCG 1 tablet Orally Once a day Active Oxybutynin Chloride 5 TAKE 1 TABLET BY MOUTH EVERY DAY for 90 day(s) Active PROCEDURES No Information RESULTS No Results REASON FOR VISIT refill MEDICAL (GENERAL) HISTORY Type Description Date Medical [...] Details Provider Name:Melvin Apolinar, 2021-10 09:00:00 AM, [address], , [place], [address], Insurance Providers Payer Name Payer Address Payer Phone Insured Name Patient Relati onship to Insured Coverage Start Date Coverage End Date AETNA MEDICARE AETNA [employer] INSURANCE [employer] [address] [facility] [id number] MARCELA SWANSON self
--- OUTSIDE RECORDS SUMMARY | 2021-07-27 10:27 | CCD | Continuity of Care Document ---
Author Author Anisha STEPHENS MD Organization Unknown Address [address] [facility] [address] [place] [address] Phone [phone] Care Team Providers Care Employee Development Director Name Role Phone AUTM Unavailable Glory Dalton D.O. AUTM [phone] Problems Description No Active Problems Social History [...] 1 qd Unknown Calcium 600 + D [id number] Tab lets 1 po bid Unknown Amlodipine [...] lb BMI (Body Mass Index) 23.8 kg/m2 Nogal Body Weight 115 lb Weight 60.839 kg BSA (Body Surface Area) 1.63 m2 05/05/2020 8:13am Height 63 inches 5'3" Weight 138.00 lb BMI (Body Mass Index) 24.4 kg/m2 Nogal Body Weight 115 lb Weight 62.597 kg BSA (Body Surface Area) 1.65 m2 Results Description No Information Available Procedures Date Code Description Status 05/31/2021 [address]1643 Office/Outpatient New Moderate M DM 45-59 Minutes Completed Medical Devices Description No Information Available Encounters Type Date Location Provider Dx Diagnosis Office Visit 05/31/2021 4:00p [facility] Miguel Angel hair JR, MD R22.1 Localized swelling, mass and lump, neck L72.3 Sebaceous cyst Assessments Date Code Description Provider 05/31/2021 R22.1 Localized swelling, mass and lum p, neck Miguel Angel Stephens JR, MD 05/31/2021 L72.3 Sebaceous cyst Miguel Angel Stephens JR, MD Plan of Treatment Future Appointment(s):* 08/10/2021 11:30 am - LILLY Capps at [facility] * 07/27/2021 12:00 pm - Miguel Angel Stephens JR, MD at [facility] 05/31/2021 - Miguel Angel Stephens JR, MD* R22.1 Localized swelling, mass and lump, neck* Comments:* Patient has a large sebaceous cyst on her back and upper trunk area that is quite large and has an opening to it and the sebaceous material can be seen. I am actually surprised that this has not become infected over the years. And now it is extremely large and it is uncomfortable when she sits against the area. My recommendation is for excision of this we have discussed the risks as well as benefits associated with this however I feel that this is actually too big to comfortably remove here in the office and will need some sedation as well as significant amounts of local anesthetic. We will schedule this for her in the operating room. Risks as well as benefits have been discussed with her at length she und erstands the risk include but are not limited to infection bleeding damage to surrounding structures as well as poor wound healing issues and she would like to proceed with this as soon as possible. * L72.3 Sebaceous cyst Functional Status Description No Information Available Mental Status Description No Information Available Referrals Refer to Reason for Referral Status Appt Date Miguel Angel Stephens JR, MD EPIDERMOID CYST ON BACK Created [address] [address] [phone]
--- OUTSIDE RECORDS SUMMARY | 2021-07-27 10:27 | CCD ---
Author Author [facility] Organization [facility] Address Unknown Phone Unavailable Care Team Providers Care Makeup Artistry Instructor Name Role Phone Melvin Jiang Unavailable PROBLEMS Type Condition ICD9-CM Code [id number] Code Onset Dates Condition S tatus W/U Status Risk SNOMED Code Notes Problem Personal history of other infectious and parasitic disease s Z86.19 Active confirmed 032627099 Problem Vitamin B12 deficiency anemia, unspecified D51.9 Active confirmed 06827919 Problem H/O Clostridium difficile infection Z86.19 Acti ve confirmed 221643956 Problem Encounter for immunization Z23 Active confirmed 824296957 Problem 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 Active confirmed 324722153 Problem Urinary tract infection due to Proteus N39.0 A ctive confirmed 160933387 Problem Hypertensive heart disease without heart failure I 11.9 Active confirmed 49470465 Problem Proteus (mirabilis) (morgani i) as the cause of diseases classified elsewhere B96.4 Active confirmed 408334076 Problem Macrocytic anemia D53.9 Active confirmed 83 491886 Problem Anemia in chronic kidney disease D63.1 Active confirmed 313511113305896 Problem CKD (chronic kidney disease), stage III N18.3 Active confirmed 679682540 Problem Diverticulitis large intestine w/o perfo ration or abscess w/o bleeding K57.32 Active confirmed 0955389 Problem Dizziness R42 Active confirmed 622383235 Problem Type 2 diabetes mellitus without complications E11 .9 Active confirmed 727446646 Problem Memory loss R41.3 Active confirmed 09638074 Problem Medicare annual wellness visit, subsequent Z00.00 Active confirmed 433478496 Problem Mixed hyperlipidemia E78.2 Active confirmed 480540922 Problem Hypothyroidism, unspecified E03.9 Active confirmed 89138009 Problem Age-related nuclear cataract of left eye H25.12 Active confirmed 166957899284359 Problem Essential (primary) hypertension I10 Active conf irmed 37142332 Problem Calculus of kidney N20.0 Active confirmed 9 8015354 Problem Venous insufficiency (chronic) (peripheral) I87.2 Active confirmed [id number] ALLERGIES Allergen (clinical drug ingredient) Drug/Non Drug Allergy do cumented on EMR Reaction Allergy Type Onset Date Status Tape Unknown Non Drug Allergy Active trimethoprim Trimethoprim([facility] Code:[address]-02) Unknown Drug All ergy Active Requip dizziness Non Drug Allergy Active Sulfacetamide Sod-Sulfur Unknown Drug Allergy Active ENCOUNTERS from 1935 to 2021-05-05 Encounter Location Date Provider Diagnosis [facility] [address] [place] [id number] Apr, Melvin Jiang Hypertensive heart disease without heart failure I11.9 ; Memory loss R41.3 ; CKD (chronic kidney disease), stage III N18.3 ; Medicare annual wellness visit, subsequent Z00.00 ; Epidermoid cyst of skin of back L72.0 ; Type 2 diabetes mellitus without complications E11.9 ; Hypothyroidism, unspecified E03.9 and Vitamin B12 deficiency anemia, unspecified D51.9 IMMUNIZATIONS Vaccine Route Administration Date Status Zoster [...] Education Language: Question Answer Notes Languages spoken: Divehi Sikh: Question Answer Notes Sikh No alevism beliefs that would impact health care. Sexual [...] never smoker never smoker REASON FOR REFERRAL from 1935 to 2021-05-05 Reason excise please Diagnosis 1 Epidermoid cyst of skin of b ack (L72.0) Referral Organization [facility] Tyrese Referring Provider First Name Melvin Referring Provider Last Name Apolinar Referring Provider Specialty Family Medicine Referred Provider Miguel Angel Stephens Referred Provider Specialty General Surgery Referral Priority Routine General Notes Erum Santiago 04/30/2021 5: 28:45 PM > faxed VITAL SIGNS Weight 133 lbs Apr, Height 63.5 in Apr, BMI 23.19 kg/m2 Apr, Heart Rate 94 /min Apr, Respiratory Rate 18 /min Apr, Temperature 97.1 degrees Fahrenheit Apr, Oximetry 98 Apr, Blood pressure systolic 142 mm Hg Apr, Blood pressure diastolic 78 mm Hg Apr, MEDICATIONS Medication SIG (Take, Route, Frequency, Duration) [...] once daily for 90 day (s) Active Calcium 600 + D 600-400 MG-UNIT 1 tablet Orally Twice a day Active Metformin 1000 mg 1 tablet orally Daily for 90 day(s) Active Levothyroxine Sodium 100 MCG 1 tablet every morning on an empty stomach Orally Once a day for 90 day(s) Active Oxybutynin Chloride 5 TAKE 1 TABLET BY MOUTH EVERY DAY for 90 day(s) Active Aspirin 81 MG 1 tablet Orally Once a day Active Amlodipine Besylate 2.5 TAKE 1 TABLET BY MOUTH EVERY DAY for 90 day(s ) Active Vitamin B-12 1000 MCG 1 tablet Orally Once a day Active PROCEDURES No Information RESULTS Component Value Reference Range CBC - Complete Blood Count Reviewed date:04/30/2021 17:07:07 Interpretation: Performing Lab:[facility] LABORATORY [address] [facility] [address] , ,[place] [address] WHITE BLOOD COUNT 8.4 4.0-10.0 RED BLOOD COUNT 3.84 4.00-5.40 HEMOGLOBIN 13.0 12.0-15.5 HEMATOCRIT 39.3 36.0-47.0 MEAN CORPUSCULAR VOLUME 102.3 80.0-96.0 MEAN CORPUSCULAR HEMOGLOBIN 33.9 27.0-33.0 MEAN CORPUSCULAR HGB CONC 33.1 32.0-36.5 RED CELL DISTRIBUTION WIDTH 14.3 11.5-14.5 PLATELET COUNT, AUTOMATED 467 150-450 Comprehensive Metabolic Profile (CMP) Reviewed date:04/30/2021 17:07:07 Interpretation: Performing Lab:[facility] LABORATORY [address] [facility] [address] , ,[place] [address] GLUCOSE, FASTING 152 70-100 BLOOD UREA NITROGEN 22 7-18 CREATININE FOR GFR 1.20 0.55-1.30 GLOMERULAR FILTRATION RATE 45.6 >32 SODIUM LEVEL 139 136-145 POTASSIUM SERUM 4.7 3.5-5.1 CHLORIDE LEVEL 106 98-107 CARBON DIOXIDE LEVEL 25 21-32 CALCIUM LEVEL 9.1 8.8-10.2 AST/SGOT 39 7-37 ALT/SGPT 35 12-78 ALKALINE PHOSPHATASE 77 45-117 BILIRUBIN,TOTAL 0.7 0.2-1.0 TOTAL PROTEIN 7.3 6.4-8.2 ALBUMIN 3.7 3.2-5.2 ALBUMIN/GLOBULIN RATIO 1.0 1.2-2.2 FREE T4 & TSH PANEL Reviewed date:04/30/2021 17:07:07 Interpretation: Performing Lab:[facility] LABORATORY [address] [facility] [facility] [address] , ,[place] [address] THYROID STIMULATING HORMONE 2.080 0.358-3.740 FREE T4 1.34 0.76-1.46 HEMOGLOBIN A1c Reviewed date:04/30/2021 17:07:07 Interpretation: Performing Lab:[facility] LABORATORY [address] [place] [address] , ,[place] [address] HEMOGLOBIN A1c 7.0 ESTIMATED AVERAGE GLUCOSE 154 60-110 VITAMIN B12 LEVEL Reviewed date:04/30/2021 17:07:07 Interpretation: Performing Lab:[facility] LABORATORY [address] [facility] [address] , ,[place] [address] VITAMIN B12 LEVEL [phone] LIPID PANEL (CARDIAC RISK) Reviewed date:04/30/2021 17:07:07 Interpretation: Performing Lab:[facility] LABORATORY [address] [facility] [address] , ,[facility] TRIGLYCERIDES LEVEL 89 <150 CHOLESTEROL LEVEL 153 <200 HDL CHOLESTEROL 61 >40 LDL CHOLESTEROL 74 <100 NON-HDL-C 92 CHOLESTEROL RISK RATIO 2.508 <5 REASON FOR VISIT 6 month MEDICAL (GENERAL) HISTORY Type Description Date Medical [...] 08/13/13,08/27/13,10/15/13 Surgical History Left eye cataract surgery 2016 Surgical History hernia repair 07/2019 Hospitalization History diverticulitis 02/2012 Hospitalization History vertigo 12/2018 Goals Section No Information Health Concerns No Information MEDICAL EQUIPMENT No Information MENTAL STATUS No Information FUNCTIONAL STATUS No Information ASSESSMENTS Encounter Date Diagnosis Assessment Notes Treatment Notes Treatm ent Clinical Notes Apr, Hypertensive heart disease without heart failure (ICD-10 - I11.9) Per JNC 8 guidelines, goal BP < 140/90 (150/90 if age >60), is meeting goal on current regimen. Advised heart-healthy diet, sodium restriction Apr, Memory loss (ICD-10 - R41.3) Apr, CKD (chronic kidney disease), stage III (ICD-10 - N18.3) avoid NSAIDs, other nephrotoxic drugs; monitor with periodic lab work; adjust meds for GFR Apr, Medicare annual wellness visit, subsequent (ICD- 10 - Z00.00) age appropriate anticipatory guidance given, per USPSTF recommendations; immunizations up to date. discussed plans for implementing improvement in identified areas Apr, Epidermoid cyst of skin of back (ICD-10 - L72.0) Apr, Type 2 diabetes mellitus without complications ( ICD-10 - E11.9) Apr, Hypothyroidism, unspecified (ICD-10 - E03.9) Apr, Vitamin B12 deficiency anemia, unspecified (ICD- 10 - D51.9) PLAN OF TREATMENT Treatment Notes Assessment Notes Clinical Notes Hypertensive heart disease without heart failure Per JNC 8 guidelines, goal BP < 140/90 (150/90 if age >60), is meeting goal on current regimen. Advised heart- healthy diet, sodium restriction CKD (chronic kidney disease), stage III avoid NSAIDs, other nephrotoxic drugs; monitor with periodic lab work; adjust meds for GFR Medicare annual wellness visit, subsequent age appropriate anticipatory guidance given, per USPSTF recommendations; immunizations up to date. discussed plans for implementing improvement in identified areas Referrals Referral Date Details excise please, Miguel Angel Stephens Next Appt Details 6 Months Reason: Provider Name:Melvin Jiang, 2021-10 09:00:00 AM, [address], , [place], [address], Insurance Providers Payer Name Payer Address Payer Phone Insured Name Patient Relati onship to Insured Coverage Start Date Coverage End Date AETNA MEDICARE AETNA [employer] INSURANCE [employer] [address] [facility] [address] MARCELA SWANSON self
--- OUTSIDE RECORDS SUMMARY | 2021-07-27 10:27 | CCD ---
Author Author [facility] Organization [facility] Address Unknown Phone Unavailable Care Team Providers Care Drop Forger Name Role Phone Melvin Jiang Unavailable PROBLEMS Type Condition ICD9-CM Code [id number] Code Onset Dates Condition S tatus W/U Status Risk SNOMED Code Notes Problem Personal history of other infectious and parasitic disease s Z86.19 Active confirmed 458648268 Problem Vitamin B12 deficiency anemia, unspecified D51.9 Active confirmed 28075450 Problem H/O Clostridium difficile infection Z86.19 Acti ve confirmed 103475718 Problem Encounter for immunization Z23 Active confirmed 013061877 Problem 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 Active confirmed 755952356 Problem Urinary tract infection due to Proteus N39.0 A ctive confirmed 332528229 Problem Hypertensive heart disease without heart failure I 11.9 Active confirmed 79417152 Problem Proteus (mirabilis) (morgani i) as the cause of diseases classified elsewhere B96.4 Active confirmed 148519482 Problem Macrocytic anemia D53.9 Active confirmed 83 218991 Problem Anemia in chronic kidney disease D63.1 Active confirmed 947584630635863 Problem CKD (chronic kidney disease), stage III N18.3 Active confirmed 988534579 Problem Diverticulitis large intestine w/o perfo ration or abscess w/o bleeding K57.32 Active confirmed 2446364 Problem Dizziness R42 Active confirmed 315768081 Problem Type 2 diabetes mellitus without complications E11 .9 Active confirmed 975223768 Problem Memory loss R41.3 Active confirmed 96826414 Problem Medicare annual wellness visit, subsequent Z00.00 Active confirmed 368193805 Problem Mixed hyperlipidemia E78.2 Active confirmed 134021327 Problem Hypothyroidism, unspecified E03.9 Active confirmed 48795648 Problem Age-related nuclear cataract of left eye H25.12 Active confirmed 226953184954261 Problem Essential (primary) hypertension I10 Active conf irmed 65635301 Problem Calculus of kidney N20.0 Active confirmed 9 5546585 Problem Venous insufficiency (chronic) (peripheral) I87.2 Active confirmed 55722503401385138 ALLERGIES Allergen (clinical drug ingredient) Drug/Non Drug Allergy do cumented on EMR Reaction Allergy Type Onset Date Status Tape Unknown Non Drug Allergy Active trimethoprim Trimethoprim([facility] Code:[address]-71) Unknown Drug All ergy Active Requip dizziness Non Drug Allergy Active Sulfacetamide Sod-Sulfur Unknown Drug Allergy Active ENCOUNTERS from 1935 to 2021-06-24 Encounter Location Date Provider Diagnosis [facility] [address] [place] [address] Jun, 2021 Melvin Jiang IMMUNIZATIONS Vaccine Route Administration Date Status Pneumococcal Adult 0.5mL Pneumovax 23 IM Intramuscular February 16, 2016 Administered Influenza (High Dose 65 & up) IM Intramuscular Aug 17, 2016 A dministered Influenza (High Dose 65 & up) IM Intramuscular Jul 19, 2017 A dministered Influenza 18 yrs & older Flublok IM Intramuscular Jul 04, 2018 Administered Zoster 50mcg/0.5mL Shingrix Unknown March 20, 2018 Admi nistered Influenza (High Dose 65 & up) IM Intramuscular Jul 17, 2014 A dministered Influenza (High Dose 65 & up) IM Intramuscular Aug 13, 2015 A dministered Influenza 6mo & up Fluzone IM Intramuscular Jun 15, 2010 Admi nistered Zoster 50mcg/0.5mL Shingrix Unknown January 24, 2018 Admi nistered Zoster 0.65mL Zostavax Unknown Apr [...] Education Language: Question Answer Notes Languages spoken: Sami Oriental Orthodox: Question Answer Notes Oriental Orthodox No restoration beliefs that would impact health care. Sexual [...] Twice a day Active Amlodipine Besylate 2.5 TAKE 1 TABLET BY MOUTH EVERY DAY for 90 day(s ) Active Vitamin B-12 1000 MCG 1 tablet Orally Once a day Active Levothyroxine Sodium 100 MCG 1 tablet every morning on an empty stomach Orally Once a day for 90 day(s) Active Aspirin 81 MG 1 tablet Orally Once a day Active Metformin 1000 mg 1 tablet orally Daily for 90 day(s) Active Oxybutynin Chloride 5 TAKE 1 TABLET BY MOUTH EVERY DAY for 90 day(s) Active PROCEDURES No Information RESULTS No Results REASON FOR VISIT Refill-Amlodipine Besylate 2.5 MG Tablet,Oxybutynin 5 MEDICAL (GENERAL) HISTORY Type Description Date Medical [...] Medication Name Sig Start Date Stop Date Amlodipine Besylate 2.5 TAKE 1 TABLET BY MOUTH EVERY DAY for 90 day(s) Levothyroxine Sodium 100 MCG 1 tablet every morning on an empty stomach Orally Once a day for 90 day(s) Oxybutynin Chloride 5 TAKE 1 TABLET BY MOUTH EVERY DAY for 90 da y(s) Next Appt Details Provider Name:Melvin Jiang, 2021-07 10:00:00 AM, [address], , [place], [address], Provider Name:Melvin Jiang, 2021-10 09:00:00 AM, [address], , [place], [address], Insurance Providers Payer Name Payer Address Payer Phone Insured Name Patient Relati onship to Insured Coverage Start Date Coverage End Date AETNA MEDICARE AETNA [employer] INSURANCE A [employer] [address] [facility] [phone] MARCELA SWANSON self
--- OUTSIDE RECORDS SUMMARY | 2021-07-27 10:28 | CCD ---
Author Author [facility] Organization [facility] Address Unknown Phone Unavailable Care Team Providers Care Wine Maker Name Role Phone Rolo Stephens JR, MD Unavailable Unavailable Rolo Stephens JR, MD Unavailable Unavailable Rolo Stephens JR, MD Unavailable Unavailable Rolo Stephens JR, MD Unavailable Unavailable Rolo Stephens JR, MD Unavailable Unavailable Rolo Stephens JR, MD Unavailable Unavailable Rolo Stephens JR, MD Unavailable Unavailable Rolo Stephens JR, MD Unavailable Unavailable Rolo Stephens JR, MD Unavailable Unavailable Rolo Stephens JR, MD Unavailable Unavailable Rolo Stephens JR, MD Unavailable Unavailable Rolo Stephens JR, MD Unavailable Unavailable Rolo Stephens JR, MD Unavailable Unavailable Rolo Stephens JR, MD Unavailable Unavailable Rolo Stephens JR, MD Unavailable Unavailable Rolo Stephens JR, MD Unavailable Unavailable Rolo Stephens JR, MD Unavailable Unavailable Rolo Stephens JR, MD Unavailable Unavailable Rolo Stephens JR, MD Unavailable Unavailable Rolo Stephens JR, MD Unavailable Unavailable Rolo Stephens JR, MD Unavailable Unavailable Rolo Stephens JR, MD Unavailable Unavailable Rolo Stephens JR, MD Unavailable Unavailable Rolo Stephens JR, MD Unavailable Unavailable Angelo JR, J Miguel Angel Unavailable Unavailable Angelo JR, J Miguel Angel Unavailable Unavailable Angelo JR, J Miguel Angel Unavailable Unavailable Angelo JR, J Miguel Angel Unavailable Unavailable Angelo JR, J Miguel Angel Unavailable Unavailable Angelo JR, J Miguel Angel Unavailable Unavailable Angelo JR, J Miguel Angel Unavailable Unavailable Angelo JR, J Miguel Angel Unavailable Unavailable Angelo JR, J Miguel Angel Unavailable Unavailable Angelo JR, J Miguel Angel Unavailable Unavailable Angelo JR, J Miguel Angel Unavailable Unavailable Angelo JR, J Miguel Angel Unavailable Unavailable Angelo JR, J Miguel Angel Unavailable Unavailable Angelo JR, J Miguel Angel Unavailable Unavailable Angelo JR, J Miguel Angel Unavailable Unavailable Angelo JR, J Miguel Angel Unavailable Unavailable Angelo JR, J Miguel Angel Unavailable Unavailable Angelo JR, J Miguel Angel Unavailable Unavailable Angelo JR, J Miguel Angel Unavailable Unavailable Angelo JR, J Miguel Angel Unavailable Unavailable Angelo JR, J Miguel Angel Unavailable Unavailable Angelo JR, J Miguel Angel Unavailable Unavailable Angelo JR, J Miguel Angel Unavailable Unavailable Angelo JR, J Miguel Angel Unavailable Unavailable Angelo JR, J Miguel Angel Unavailable Unavailable Angelo JR, J Miguel Angel Unavailable Unavailable Angelo JR, J Miguel Angel Unavailable Unavailable Angelo JR, J Miguel Angel Unavailable Unavailable Angelo JR, J Miguel Angel Unavailable Unavailable Angelo JR, J Miguel Angel Unavailable Unavailable Angelo JR, J Miguel Angel Unavailable Unavailable ROLAND, A CHACE DO Unavailable Unavailable ROLAND, A CHACE DO Unavailable Unavailable ROLAND, A CHACE DO Unavailable Unavailable ROLAND, A CHACE DO Unavailable Unavailable ROLAND, A CHACE DO Unavailable Unavailable ROLAND, A CHACE DO Unavailable Unavailable ROLAND, A CHACE DO Unavailable Unavailable ROLAND, A CHACE DO Unavailable Unavailable ROLAND, A CHACE DO Unavailable Unavailable ROLAND, A CHACE DO Unavailable Unavailable ROLAND, A CHACE DO Unavailable Unavailable ROLAND, A CHACE DO Unavailable Unavailable ROLAND, A CHACE DO Unavailable Unavailable ROLAND, A CHACE DO Unavailable Unavailable ROLAND, A CHACE DO Unavailable Unavailable ROLAND, A CHACE DO Unavailable Unavailable ROLAND, A CHACE DO Unavailable Unavailable ROLAND, A CHACE DO Unavailable Unavailable ROLAND, A CHACE DO Unavailable Unavailable ROLAND, A CHACE DO Unavailable Unavailable ROLAND, A CHACE DO Unavailable Unavailable ROLAND, A CHACE DO Unavailable Unavailable Re-disclosure Warning The records that you are about to access may contain information from federally-assisted alcohol or drug abuse programs. If such information is present, then the following federally mandated warning applies: This information has been disclosed to you from records protected by federal confidentiality rules (42 CFR part 2). The federal rules prohibit you from making any further disclosure of this information unless further disclosure is expressly permitted by the written consent of the person to whom it pertains or as otherwise permitted by 42 CFR part 2. A general authorization for the release of medical or other information is NOT sufficient for this purpose. The Federal rules restrict any use of the information to criminally investigate or prosecute any alcohol or drug abuse patient.The records that you are about to access may contain highly sensitive health information, the redisclosure of which is protected by Article 27-F of the [facility] Public Health law. If you continue you may have access to information: Regarding HIV / AIDS; Provided by facilities licensed or operated by the [facility] Office of Mental Health; or Provided by the [facility] Office for People With Developmental Disabilities. If such information is present, then the following [facility] mandated warning applies: This information has been disclosed to you from confidential records which are protected by state law. State law prohibits you from making any further disclosure of this information without the specific written consent of the person to whom it pertains, or as otherwise permitted by law. Any unauthorized further disclosure in violation of state law may result in a fine or long term sentence or both. A general authorization for the release of medical or other information is NOT sufficient authorization for further disc losure. Family History Family Member Name Family Member Gender Family Member Status Date o f Status Description Data Source(s) Unknown Unknown Problem MEDENT ([facility]) Unknown Unknown Problem MEDENT ([facility]) Unknown Unknown Problem MEDENT ([facility]) brother #1 Unknown Unknown Problem MEDENT ([facility] ) Unknown Female Problem MEDENT ([facility]) Unknown Female Problem MEDENT ([facility] ) Encounters Encounter Providers Location Date Indications Data Source(s ) [place] [address] [address] 07/21/2021 12:00:00 AM EST eCW1 ([facility]) [place] [address] [address] 06/24/2021 12:00:00 AM EDT [facility] ([facility] [place] [address] [address] 06/22/2021 12:00:00 AM EDT eCW1 ([facility]) [place] [address] [address] 06/22/2021 12:00:00 AM EDT eCW1 ([facility]) Outpatient Attender: Miguel Angel Nathan/Lesli/Homar/Gian joshi 05/31/2021 04:00:00 PM EDT MEDENT ([facility]) [place] [address] [address] 04/30/2021 12:00:00 AM EDT eCW1 ([facility]) [place] [address] [address] 01/12/2021 12:00:00 AM EDT eCW1 ([facility]) [place] [address] [address] 12/24/2020 12:00:00 AM EDT eCW1 ([facility]) [place] [address] [facility] [place] [address] 08/31/2020 12:00:00 AM EST eCW1 ([facility]) [place] [address] [address] 08/26/2020 12:00:00 AM EST eCW1 ([facility]) [place] [address] [facility] [place] [address] 07/31/2020 12:00:00 AM EST eCW1 ([facility]) Outpatient<td ID="encounterTypeDescripti onID0">1 Year Follow-Up & Testing</td><td>Chace Glover DO</td><td>He Hill MD [facility]</td><td>07/21/2020</td><td>7:51AM</td><td>9:28AM</td><td><content ID="encounterDiagnosisID0-0">Essential Hypertension</content>, <content ID="encounterDiagnosisID0-1">Assessment of Taking Medication For Diabetes Long- term Use of Oral Hypoglycemics</content>, <content ID="encounterDiagnosisID0- 2">Macular Degeneration Nonexudative Bilateral Early Dry Stage</content>, <content ID="encounterDiagnosisID0-3">Diabetes Mellitus Type 2 Without Complication</content>, <content ID="encounterDiagnosisID0-4">Dry Eye Syndrome</content>, <content ID="encounterDiagnosisID0-5">Vitreous Disorders Degeneration</content></td> Attender: CHACE Perkins MD [facility] 07/21/2020 07:51:00 AM EST - 07/21/2020 09:28:00 AM ES T Macular Degeneration Nonexudative Bilateral Early Dry StageEssential HypertensionVitreous Disorders DegenerationDry Eye SyndromeDiabetes Mellitus Type 2 Without ComplicationAssessment of Taking Medication For Diabetes Long- term Use of Oral Hypoglycemics ZHEN (He Barber MD [facility]) Macular Degeneration Nonexudative Bilate ral Early Dry Stage Essential Hypertension Vitreous Disorders Degeneration Dry Eye Syndrome Diabetes Mellitus Type 2 Without Complic ation Assessment of Taking Medication For Diab etes Long-term Use of Oral Hypoglycemics Office Visit, Est Pt., Level 3 PC [address] [place] [address] 07/17/2020 12:00:00 AM EST eCW1 ([facility]) Unknown [address] [facility] [address] 07/16/2020 12:00:00 AM EST eCW1 ([facility]) Unknown [address] [facility] [address] 07/14/2020 12:00:00 AM EST eCW1 ([facility]) Unknown [address] [facility] [address] 07/14/2020 12:00:00 AM EST eCW1 ([facility]) [place] [address] [address] 06/29/2020 12:00:00 AM EDT eCW1 ([facility]) Immunizations Vaccine Date Status Description Data Source(s) COVID-19 VACCINE Moderna 12/08/2020 12:00:00 AM EDT completed [facility] Vaccine Series Complete: YESThis Data wa s Submitted to [facility] Via [facility]. COVID-19 VACCINE Moderna 11/10/2020 12:00:00 AM EST completed [facility] Vaccine Series Complete: NOThis Data was Submitted to [facility] Via [employer]. INFLUENZA VIRUS VACCINE QUADRIVAL SPLIT 2019-21(65 YR UP)/PF 07/02/2020 12:00:00 AM EDT completed [facility] Medications Medication Brand Name Start Date Product Form Dose Route Admi nistrative Instructions Pharmacy Instructions Status Indications Reaction Description Data Source(s) Lisinopril 2.5 MG Oral Tablet Lisinopril 2.5 MG Oral Tablet 07/24/2019 12:00:00 AM EST 1 aborted lisinopril 2.5 M G Oral Tablet ZHEN (He Barber MD [facility]) fidaxomicin 200 MG Oral Tablet [Dificid] Dificid 200MG Oral Tablet Dificid 200MG Oral Tablet 10/07/2016 12:00:00 AM EST abort ed fidaxomicin 200 MG Oral Tablet [Dificid] ZHEN (He Barber MD [facility]) Insurance Providers Payer name Policy type / Coverage type Policy ID Covered democrat ID Covered democrat's relationship to benson Policy Benson Plan Information [id number] B [id number] [facility] [place] [id number] Self Medicare [place] Med[place]ap Part B [id number] Self MVP (pr) Commercial [id number] Self [facility] [id number] SP [id number] MVP GOLD [id number] SP [id number] AARP O [id number] S [id number] MEDICARE C [id number] S [id number] [facility] OPTIONS [id number] SP [id number] MEDICARE [id number] SP [id number] ANSI-Medicare Part B [id number] ANSI-Health Maintenance Organization ( O) [id number] ANSI-Commercial [id number] ANSI-Medicare Part B [id number] ANSI-Health Maintenance Organization ( O) [id number] ANSI-Commercial [id number] ANSI-Health Maintenance Organization ( O) [id number] ANSI-Medicare Part B [id number] ANSI-Commercial [id number] ANSI-Commercial [id number] ANSI-Medicare Part B [id number] ANSI-Health Maintenance Organization ( O) [id number] ANSI-Medicare Part B [id number] ANSI-Health Maintenance Organization ( O) [id number] ANSI-Commercial [id number] [facility] ( O) [id number] ANSI-Medicare Part B [id number] ANSI-Commercial [id number] ANSI-Commercial [id number] ANSI-Health Maintenance Organization ( O) [id number] ANSI-Medicare Part B [id number] ANSI-Commercial [id number] [facility] ( O) [id number] ANSI-Medicare Part B [id number] [facility]-Health Maintenance Organization ( O) [id number] [facility]-Health Maintenance Organization ( O) [id number] [facility]-Health Maintenance Organization ( O) [id number] ANSI-Health Maintenance Organization ( O) [id number] MVP [facility] [id number] SP [id number] MVP GOLD [id number] SP [id number] ANSI-Health Maintenance Organization ( O) [id number] ANS-Health Maintenance Organization ( O) [id number] [facility]-Health Maintenance Organization ( O) [id number] [facility]-Health Maintenance Organization ( O) [id number] [facility]-Health Maintenance Organization ( O) [id number] [facility]-Health Maintenance Organization ( O) [id number] [facility]-Health Maintenance Organization ( O) [id number] MVP HEALTH CARE O [id number] S [id number] MVP GOLD [id number] SP [id number] [facility] Health Maintenance Organization (O) [id number] Self [id number] MVP HEALTHCARE MCR ADVANTAGE MCRADVANT [id number] S [id number] MV Health Maintenance Organization (HMO) [id number] Self [id number] MVP Commercial [id number] Self [id number] MVP Health Maintenance Organization (HMO) [id number] 0 [id number] Self [id number] MVP Health Maintenance Organization (HMO) [id number] Self [id number] MVP Health Maintenance Organization (HMO) [id number] Self [id number] MVP Health Maintenance Organization (HMO) [id number] lf MVP GOLD [id number] SP [id number] MVP Commercial [id number] Self Medicare Dme Supplies Medigap Part B [id number] Self MVP Medicare Commercial [id number] Self MVP HEALTH CARE O [id number] S [id number] MVP HEALTH CARE O [id number] S [id number] [employer] Medigap Part B Self AETNA MEDICARE [id number] SP [id number] MVP GOLD O [id number] S [id number] 500 BLUE CROSS O [id number] S [id number] MEDICARE M [id number] S [id number] B [employer] [place] 306/806 [id number] SP [id number] MEDICARE [id number] SP [id number] B [employer] [place] WATN 306/8 P [id number] S [id number] MVP Health Care Commercial [id number] Self AETNA MEDICARE [id number] SP [id number] AETNA MEDICARE [id number] SP MEBTL HBM Aetna Other 0 [id number] Self 0 Medicare Part B [facility] Other 0 [id number] Self 0 AETNA MEDICARE [id number] SP MEBTL HBM AETNA MEDICARE O [id number] S [id number] Problems, Conditions, and Diagnoses Code Display Name Description Problem Type Effective Dates Data Source(s) R41.3 11411668 Memory loss Problem 04/30/2021 12:00:00 AM E DT eCW1 ([facility]) 092188609 Macular Degeneration Nonexudative Bilate ral Early Dry Stage Macular Degeneration Nonexudative Bilateral Early Dry Stage Problem 12:00:00 AM EST ZHEN (He Barber MD [facility]) Surgeries/Procedures Procedure Description Date Indications Data Source(s) OFFICE OUTPATIENT NEW 45 MINUTES 05/31/2021 12:00:00 A M EDT MEDENT ([facility], ) Surgical / procedural history Hernia, Tubal , Hemorrhoidectomy Surgical / procedural history Hernia, Tubal , Hemorrhoidectomy 07/21/2020 12:00:00 AM EST ZHEN (He naranjo MD [facility]) Extracapsular extraction of lens (procedure) History o f extracapsular cataract extraction PCIOL OS by Dr. Glover 05/22/17 ~PCIOL OD by Dr. Glover 06/12/17 07/21/2020 12:00:00 AM EST ZHEN (Albaro Barber MD [facility]) COMPUTERIZED OPHTHALMIC IMAGING RETINA Scodi Retina, w ith interpretation and report (GA) 07/21/2020 12:00:00 AM EST ZHEN (Albaro Barber MD [facility]) Comprehensive eye exam established patient (25) Compre hensive eye exam established patient (25) 07/21/2020 12:00:00 AM EST ZHEN (He Barber MD [facility]) Results ID Date Data Source LIPID PANEL (CARDIAC RISK) 04/30/2021 12:00:00 AM EDT eCW1 ( [facility]) Name Value Range Interpretation Code Description Data Jacquelyn rce(s) Supporting Document(s) Cholesterol [Moles/volume] in Serum or Plasma 153 <200 CHOLESTEROL LEVEL eCW1 ([facility]) Triglyceride [Mass/volume] in Serum or Plasma by calculation 89 <150 TRIGLYCERIDES LEVEL eCW1 ([facility]) Cholesterol in HDL [Moles/volume] in Serum or Plasma 61 >40 HDL CHOLESTEROL eCW1 ([facility]) Cholesterol in LDL [Mass/volume] in Serum or Plasma by calculation 74 <100 LDL CHOLESTEROL eCW1 ([facility]) 2.508 <5 CHOLESTEROL RISK RATIO eCW1 ([facility]) 92 NON-HDL-C eCW1 ([facility]) ID Date Data Source VITAMIN B12 LEVEL 04/30/2021 12:00:00 AM EDT eCW1 ([facility]) Name Value Range Interpretation Code Description Data Jacquelyn rce(s) Supporting Document(s) 902 758-407 VITAMIN B12 LEVEL eCW1 ([facility]ending [facility] to [facility]) ID Date Data Source [id number] 04/30/2021 12:00:00 AM EDT eCW1 ([facility]) Name Value Range Interpretation Code Description Data Jacquelyn rce(s) Supporting Document(s) Hemoglobin A1c/Hemoglobin.total in Blood 7.0 HEMOGLOBIN A1c eCW1 ([facility]) ID Date Data Source FREE T4 & TSH PANEL 04/30/2021 12:00:00 AM EDT eCW1 ([facility]) Name Value Range Interpretation Code Description Data Jacquelyn rce(s) Supporting Document(s) 2.080 0.358-3.740 THYROID STIMULATING HORM ONE eCW1 ([facility]) 1.34 0.76-1.46 FREE T4 eCW1 ([facility]) ID Date Data Source Comprehensive Metabolic Profile (CMP) 04/30/2021 12:00:00 AM EDT eCW1 ([facility]) Name Value Range Interpretation Code Description Data Jacquelyn rce(s) Supporting Document(s) 22 7-18 BLOOD UREA NITROGEN eCW1 ([facility]) 1.20 0.55-1.30 CREATININE FOR GFR eCW1 ([facility]) 152 70-100 GLUCOSE, FASTING eCW1 ([facility]) 139 136-145 SODIUM LEVEL eCW1 ([facility]) 45.6 >32 GLOMERULAR FILTRATION RATE eCW 1 ([facility]) 4.7 3.5-5.1 POTASSIUM SERUM eCW1 ([facility]) 25 21-32 CARBON DIOXIDE LEVEL eCW1 ([facility]) 9.1 8.8-10.2 CALCIUM LEVEL eCW1 ([facility]) 106 98-107 CHLORIDE LEVEL eCW1 ([facility]) 39 7-37 AST/SGOT eCW1 ([facility]) 35 12-78 ALT/SGPT eCW1 ([facility]) 77 45-117 ALKALINE PHOSPHATASE eCW1 ([facility]) 0.7 0.2-1.0 BILIRUBIN,TOTAL eCW1 ([facility]) 7.3 6.4-8.2 TOTAL PROTEIN eCW1 ([facility]) 3.7 3.2-5.2 ALBUMIN eCW1 ([facility]) 1.0 1.2-2.2 ALBUMIN/GLOBULIN RATIO eCW1 ([facility]) ID Date Data Source CBC - Complete Blood Count 04/30/2021 12:00:00 AM EDT eCW1 ( [facility]) Name Value Range Interpretation Code Description Data Jacquelyn rce(s) Supporting Document(s) 13.0 12.0-15.5 HEMOGLOBIN eCW1 ([facility]) 3.84 4.00-5.40 RED BLOOD COUNT eCW1 ([facility]) 8.4 4.0-10.0 WHITE BLOOD COUNT eCW1 ([facility]ending [facility] to [facility]) 39.3 36.0-47.0 HEMATOCRIT eCW1 ([facility]) 102.3 80.0-96.0 MEAN CORPUSCULAR VOLUME e CW1 ([facility]) 33.9 27.0-33.0 MEAN CORPUSCULAR HEMOGLOB IN eCW1 ([facility]) 33.1 32.0-36.5 MEAN CORPUSCULAR HGB CONC eCW1 ([facility]) 14.3 11.5-14.5 RED CELL DISTRIBUTION WID TH eCW1 ([facility]) 467 150-450 PLATELET COUNT, AUTOMATED eCW1 ([facility]) ID Date Data Source VITB12 & FOL 07/21/2020 02:47:55 AM EST eCW1 ([facility]) Name Value Range Interpretation Code Description Data Jacquelyn rce(s) Supporting Document(s) 10.6 FOLATE eCW1 ([facility]) > 2000 VITAMIN B12 LEVEL eCW1 ([facility]ending sale to [facility]) Procedure Social History Code Duration Value Status Description Data Source(s ) Smoking 07/15/2021 12:00:00 AM EDT Never Smoker completed Never S moker eCW1 ([facility]) Smoking 04/30/2021 12:00:00 AM EDT Never Smoker completed Never S moker eCW1 ([facility]) Smoking 04/30/2021 12:00:00 AM EDT Never Smoker completed Never S moker eCW1 ([facility]) Smoking 04/30/2021 12:00:00 AM EDT Never Smoker completed Never S moker eCW1 ([facility]) Smoking 04/30/2021 12:00:00 AM EDT Never Smoker completed Never S moker eCW1 ([facility]) Smoking 07/21/2020 09:40:19 AM EST Never smoked tobacco (nolan mccray) completed Never smoked tobacco (urvashi) ZHEN (He Barber MD [facility]) Smoking 07/17/2020 12:00:00 AM EST Never Smoker completed Never S moker eCW1 ([facility]) Smoking 07/17/2020 12:00:00 AM EST Never Smoker completed Never S moker eCW1 ([facility]) Smoking 07/17/2020 12:00:00 AM EST Never Smoker completed Never S moker eCW1 ([facility]) Smoking 07/17/2020 12:00:00 AM EST Never Smoker completed Never S moker eCW1 ([facility]) Smoking 07/17/2020 12:00:00 AM EST Never Smoker completed Never S moker eCW1 ([facility]) Smoking 07/17/2020 12:00:00 AM EST Never Smoker completed Never S moker eCW1 ([facility]) Vital Signs ID Date Data Source UNK Name Value Range Interpretation Code Description Data Source(s) Systolic blood pressure 154 mm[Hg] 154 mm[Hg] M EDENT ([facility]) Diastolic blood pressure 88 mm[Hg] 88 mm[Hg] MEDENT ([facility]) Heart rate 91 /min 91 /min [facility] ([facility]) Body temperature 99.1 [degF] 99.1 [degF] [facility]. [facility] ([facility]) Body height 63 [in_i] 63 [in_i] [facility] ([facility]) 5'3" Body weight 134.12 [lb_av] 134.12 [lb_av] [facility] ([facility]) Body mass index (BMI) [Ratio] 23.8 kg/m2 23.8 k g/m2 [facility] ([facility]) Rodney body weight 115 [lb_av] 115 [lb_av] [facility] T ([facility]) Body weight 60.839 kg 60.839 kg [facility] ([facility]) Body surface area Derived from formula 1.63 m2 1.63 m2 [facility] ([facility]) Body weight 133 [lb_av] 133 [lb_av] eCW1 ([facility]) Body height 63.5 [in_i] 63.5 [in_i] eCW1 ([facility]) Body mass index (BMI) [Ratio] 23.19 kg/m2 23.19 kg/m2 eCW1 ([facility]) Heart rate 94 /min 94 /min eCW1 ([facility]) Respiratory rate 18 /min 18 /min eCW1 ([facility]) Body temperature 97.1 [degF] 97.1 [degF] eCW1 ( [facility]) Systolic blood pressure 142 mm[Hg] 142 mm[Hg] e CW1 ([facility]) Diastolic blood pressure 78 mm[Hg] 78 mm[Hg] eCW1 ([facility]) Body weight 137 [lb_av] 137 [lb_av] eCW1 ([facility]) Body height 63.5 [in_i] 63.5 [in_i] eCW1 ([facility]) Body mass index (BMI) [Ratio] 23.89 kg/m2 23.89 kg/m2 eCW1 ([facility]) Heart rate 89 /min 89 /min eCW1 ([facility]) Respiratory rate 18 /min 18 /min eCW1 ([facility]) Body temperature 96.8 [degF] 96.8 [degF] eCW1 ( [facility]) Systolic blood pressure 130 mm[Hg] 130 mm[Hg] e CW1 ([facility]) Diastolic blood pressure 76 mm[Hg] 76 mm[Hg] eCW1 ([facility])
[2021-07-27] MEDS ORDERED: fentaNYL 100 MCG/2 ML INJECTION (J3010) As Ordered ONE (12:49)
[2021-07-27] MEDS ORDERED: LIDOCAINE 2% 100MG/5ML SDV (FOR ANES.) As Ordered ONE (12:49)
[2021-07-27] MEDS ORDERED: propofoL 200 MG/20 ML VIAL As Ordered ONE ×2 (12:49→14:07)
[2021-07-27] MEDS ORDERED: MIDAZOLAM INJ 2MG/2ML VIAL (J2250 PER 1MG) As Ordered ONE (12:50)
[2021-07-27] MEDS ORDERED: BUPIVACAINE/EPIN 0.25% 30 ML VIAL As Ordered ONE (13:18)
[2021-07-27] MEDS ORDERED: LR 1,000 ML IV SCH (14:45)
[2021-07-27] MEDS ORDERED: ONDANSETRON 4MG/2ML VIAL IV PRN (14:45)
[2021-07-27] MEDS ORDERED: ACETAMINOPHEN TAB 650MG DOSE (2X325MG) PO PRN (14:45)
[2021-07-27 14:50] VITALS: BP 174/92
== END 2021-07-27 15:02 | disposition home or self-care (01) ==
LOC: M SDC 10:21
PROVIDERS: ATTEND Surgery
DX: L72.0 Epidermal cyst (principal); I10 Essential (primary) hypertension; E11.9 Type 2 diabetes mellitus without complications; M10.9 Gout, unspecified; E03.9 Hypothyroidism, unspecified; Z79.899 Other long term (current) drug therapy; Z88.2 Allergy status to sulfonamides
CPT/HCPCS: 11406; 88304; J2250; J3010

== ENCOUNTER → 2021-12-01 | Outpatient (REF) | payer MEDICARE ==
[~2021-12-01] MED LIST changes: -LISI-898 PO; +LISI5TAB11 PO; -LR 1,000 ML IV ONE
[2021-12-01 16:47] LABS: HEMATOCRIT 38.4 % (36.0-47.0); HEMOGLOBIN 12.9 g/dl (12.0-15.5); MEAN CORPUSCULAR HEMOGLOBIN 33.8 pg (27.0-33.0); MEAN CORPUSCULAR HGB CONC 33.6 g/dl (32.0-36.5); MEAN CORPUSCULAR VOLUME 100.5 fl (80.0-96.0); PLATELET COUNT, AUTOMATED 466 10^3/uL (150-450); RED BLOOD COUNT 3.82 10^6/uL (4.00-5.40); WHITE BLOOD COUNT 7.6 10^3/uL (4.0-10.0)
[2021-12-01 17:21] LABS: ALBUMIN 3.8 GM/DL (3.2-5.2); BILIRUBIN,TOTAL 1.3 MG/DL (0.2-1.0); CALCIUM LEVEL 9.1 MG/DL (8.8-10.2); CREATININE FOR GFR 1.1 MG/DL (0.55-1.30); FREE T4 1.28 NG/DL (0.76-1.46); GLOMERULAR FILTRATION RATE 50.3 (>32); POTASSIUM SERUM 4.3 MEQ/L (3.5-5.1); THYROID STIMULATING HORMONE 1.26 uIU/ML (0.358-3.740)
[2021-12-01 17:36] LABS: HEMOGLOBIN A1c 7.4 %
== END ==
LOC: M SFHCADAM 14:51
PROVIDERS: ATTEND Family Medicine
DX: N18.30 Chronic kidney disease, stage 3 unspecified (principal); E11.9 Type 2 diabetes mellitus without complications; I11.9 Hypertensive heart disease without heart failure; E03.9 Hypothyroidism, unspecified

== ENCOUNTER → 2022-03-09 | Outpatient (REF) | payer MEDICARE ==
[2022-03-09 13:25] LABS: CALCIUM LEVEL 9.2 MG/DL (8.8-10.2); CREATININE FOR GFR 1.19 MG/DL (0.55-1.30); GLOMERULAR FILTRATION RATE 45.9 (>32); POTASSIUM SERUM 3.7 MEQ/L (3.5-5.1)
== END ==
LOC: M SFHCADAM 08:36
PROVIDERS: ATTEND Family Medicine
DX: E11.9 Type 2 diabetes mellitus without complications (principal)

== ENCOUNTER 2022-04-01 00:59 | Emergency (ER) | payer MEDICARE ==
[~2022-04-01] VITALS: Ht 170.2 cm; Wt 62.7 kg
[2022-04-01 03:47] LABS: BASO % 0.3 % (0.0-1.0); EOS % 0.2 % (0.0-3.0); HEMATOCRIT 37.6 % (36.0-47.0); LYMPH # 0.3 10^3/uL (1.5-5.0); LYMPH % 2.9 % (24.0-44.0); MEAN CORPUSCULAR HEMOGLOBIN 33.9 pg (27.0-33.0); MEAN CORPUSCULAR HGB CONC 34.6 g/dl (32.0-36.5); MEAN CORPUSCULAR VOLUME 97.9 fl (80.0-96.0); MONO # 0.9 10^3/uL (0.0-0.8); MONO % 8.2 % (2.0-8.0); NEUTROPHILS # 10.1 10^3/uL (1.5-8.5); NEUTROPHILS % 87.9 % (36.0-66.0); PLATELET COUNT, AUTOMATED 356 10^3/uL (150-450); RED BLOOD COUNT 3.84 10^6/uL (4.00-5.40); WHITE BLOOD COUNT 11.5 10^3/uL (4.0-10.0)
[2022-04-01 04:07] LABS: CALCIUM LEVEL 8.8 MG/DL (8.8-10.2); CREATININE FOR GFR 1.37 MG/DL (0.55-1.30); POTASSIUM SERUM 3.1 MEQ/L (3.5-5.1)
[2022-04-01 04:12] LABS: CK-MB VALUE MASS 2.7 NG/ML (<3.6); MB/CK RELATIVE INDEX 3.65 (< OR =4)
[2022-04-01] MEDS ORDERED: cefTRIAXone SOD 2 GM in D5W MINI-BAG PLUS 50 ML IV ONE (07:40)
[2022-04-01] MEDS ORDERED: NS 500 ML IV ONE (07:40)
[2022-04-01] MEDS ORDERED: HOME MED LIST COMPLETE! XX SCH (09:05)
[2022-04-01 11:00] VITALS: BP 156/95
[2022-04-01 11:20] VITALS: O2SAT 95
== END 2022-04-01 12:06 | disposition home or self-care (01) ==
LOC: M ED 00:59
DX: N39.0 Urinary tract infection, site not specified (principal); R00.0 Tachycardia, unspecified; I44.4 Left anterior fascicular block; E11.9 Type 2 diabetes mellitus without complications; I10 Essential (primary) hypertension; F17.200 Nicotine dependence, unspecified, uncomplicated; Z88.2 Allergy status to sulfonamides; Z91.048 Other nonmedicinal substance allergy status; Z79.51 Long term (current) use of inhaled steroids; Z79.4 Long term (current) use of insulin; Z79.899 Other long term (current) drug therapy
CPT/HCPCS: 80048; 81001; 82550; 82553; 84484; 85025; 87088; 87186; 93005; 93041; 94760; 96365; 96366; 99285; J0696

== ENCOUNTER → 2022-07-05 | Outpatient (CLI) | payer MEDICARE | LOC: M PLAIMG 13:12 | PROVIDERS: ATTEND Family Medicine | DX: R60.0 Localized edema (principal) ==

== ENCOUNTER → 2022-07-05 | Outpatient (REF) | payer MEDICARE | LOC: M SFHCADAM 09:10 | PROVIDERS: ATTEND Family Medicine | DX: E11.9 Type 2 diabetes mellitus without complications (principal); E03.9 Hypothyroidism, unspecified; D51.9 Vitamin B12 deficiency anemia, unspecified; N18.31 Chronic kidney disease, stage 3a; R60.0 Localized edema ==

== ENCOUNTER → 2023-01-03 | Outpatient (REF) | payer MEDICARE ==
[2023-01-03 13:29] LABS: HEMOGLOBIN A1c 8.6 % (4.0-6.0)
[2023-01-03 13:33] LABS: CALCIUM LEVEL 8.7 MG/DL (8.3-10.6); CREATININE FOR GFR 1.04 MG/DL (0.55-1.30); GLOMERULAR FILTRATION RATE 53.5 (>32); POTASSIUM SERUM 4.4 MMOL/L (3.5-5.1)
== END ==
LOC: M SFHCADAM 08:28
PROVIDERS: ATTEND Family Medicine
DX: E11.9 Type 2 diabetes mellitus without complications (principal)

== ENCOUNTER → 2023-05-05 | Outpatient (REF) | payer MEDICARE ==
[2023-05-05 13:40] LABS: HEMATOCRIT 40.6 % (36.0-47.0); HEMOGLOBIN 13.3 g/dl (12.0-15.5); MEAN CORPUSCULAR HEMOGLOBIN 33.2 pg (27.0-33.0); MEAN CORPUSCULAR HGB CONC 32.8 g/dl (32.0-36.5); MEAN CORPUSCULAR VOLUME 101.2 fl (80.0-96.0); PLATELET COUNT, AUTOMATED 402 10^3/uL (150-450); RED BLOOD COUNT 4.01 10^6/uL (4.00-5.40)
[2023-05-05 14:00] LABS: HEMOGLOBIN A1c 7.5 % (4.0-6.0)
[2023-05-05 14:10] LABS: ALBUMIN 3.8 G/DL (3.2-5.2); CALCIUM LEVEL 8.9 MG/DL (8.3-10.6); CHOLESTEROL RISK RATIO 2.41 (<5); CREATININE FOR GFR 0.96 MG/DL (0.55-1.30); FREE T4 1.43 NG/DL (0.89-1.76); GLOMERULAR FILTRATION RATE 58.5 (>32); HDL CHOLESTEROL 62.1 MG/DL (>40); LDL CHOLESTEROL 66.3 MG/DL (<100); NON-HDL-C 87.9 MG/DL; POTASSIUM SERUM 3.5 MMOL/L (3.5-5.1); THYROID STIMULATING HORMONE 0.497 uIU/ML (0.55-4.78); TOTAL PROTEIN 7.1 G/DL (5.7-8.2)
== END ==
LOC: M SFHCADAM 08:37
PROVIDERS: ATTEND Family Medicine
DX: E11.9 Type 2 diabetes mellitus without complications (principal); E03.9 Hypothyroidism, unspecified; D51.9 Vitamin B12 deficiency anemia, unspecified; N18.31 Chronic kidney disease, stage 3a

== ENCOUNTER → 2023-09-06 | Outpatient (REF) | payer MEDICARE ==
[~2023-09-06] MED LIST changes: -OXYB5TAB10 PO; +OXYB5TAB11 PO
[2023-09-06 13:49] LABS: CREATININE, URINE 46.6 MG/DL; MAU/CREAT RATIO 8.5 MCG/MG (0.0-30.0)
== END ==
LOC: M SFHCADAM 12:35
PROVIDERS: ATTEND Family Medicine
DX: E11.9 Type 2 diabetes mellitus without complications (principal)

== ENCOUNTER → 2023-12-15 | Outpatient (REF) | payer MEDICARE ==
[~2023-12-15] MED LIST changes: -OXYB5TAB11 PO; +OXYB5TAB14 PO
[2023-12-15 13:28] LABS: HEMATOCRIT 37.2 % (36.0-47.0); HEMOGLOBIN 12.1 g/dl (12.0-15.5); MEAN CORPUSCULAR HEMOGLOBIN 33.6 pg (27.0-33.0); MEAN CORPUSCULAR HGB CONC 32.5 g/dl (32.0-36.5); MEAN CORPUSCULAR VOLUME 103.3 fl (80.0-96.0); PLATELET COUNT, AUTOMATED 440 10^3/uL (150-450)
[2023-12-15 13:58] LABS: ALBUMIN 3.4 G/DL (3.2-5.2); CALCIUM LEVEL 8.7 MG/DL (8.3-10.6); CREATININE FOR GFR 1.1 MG/DL (0.55-1.30); POTASSIUM SERUM 4.7 MMOL/L (3.5-5.1); TOTAL PROTEIN 6.4 G/DL (5.7-8.2)
[2023-12-15 13:59] LABS: FREE T4 1.42 NG/DL (0.89-1.76); THYROID STIMULATING HORMONE 0.925 uIU/ML (0.55-4.78)
== END ==
LOC: M SFHCADAM 08:59
PROVIDERS: ATTEND Family Medicine
DX: D51.9 Vitamin B12 deficiency anemia, unspecified (principal); E03.9 Hypothyroidism, unspecified; I11.9 Hypertensive heart disease without heart failure; R60.0 Localized edema; Z79.84 Long term (current) use of oral hypoglycemic drugs; Z79.82 Long term (current) use of aspirin

== ENCOUNTER → 2024-01-05 | Outpatient (REF) | payer MEDICARE ==
[2024-01-05 18:04] LABS: APPEARANCE, URINE HAZY (CLEAR); BACTERIA, URINE AUTO 3+ (NEGATIVE); BILIRUBIN, URINE AUTO NEGATIVE (NEGATIVE); BLOOD, URINE BLOOD NEGATIVE (NEGATIVE); COLOR, URINE YELLOW (YELLOW); GLUCOSE, URINE (UA) AUTO 1+ mg/dL (NEGATIVE); KETONE, URINE AUTO NEGATIVE (NEGATIVE); LEUKOCYTE ESTERASE, URINE AUTO TRACE (NEGATIVE); MUCUS, URINE SMALL (NEGATIVE); NITRITE, URINE AUTO NEGATIVE (NEGATIVE); PROTEIN, URINE AUTO 1+ mg/dL (NEGATIVE); RBC, URINE AUTO 1 /HPF (0-3); SPECIFIC GRAVITY URINE AUTO 1.018 (1.002-1.035); SQUAMOUS EPITHELIAL CELL UR AU 0 /HPF (0-6); UROBILINOGEN, URINE AUTO 0.2 mg/dL (0.0-2.0); WBC, URINE AUTO 5 /HPF (0-3)
[2024-01-05 18:05] LABS: CALCIUM LEVEL 8.9 MG/DL (8.3-10.6); CREATININE FOR GFR 1.21 MG/DL (0.55-1.30); GLOMERULAR FILTRATION RATE 44.8 (>32); POTASSIUM SERUM 3.8 MMOL/L (3.5-5.1)
== END ==
LOC: M SFHCADAM 16:46
PROVIDERS: ATTEND Physician Assistant
DX: R53.83 Other fatigue (principal)

== ENCOUNTER → 2024-01-15 | Outpatient (REF) | payer MEDICARE | LOC: M SFHCADAM 17:19 | PROVIDERS: ATTEND Physician Assistant | DX: N39.0 Urinary tract infection, site not specified (principal) ==

== ENCOUNTER → 2024-03-23 | Outpatient (REF) | payer MEDICARE | LOC: M LAB REF 19:52 | PROVIDERS: ATTEND Physician Assistant Medical | DX: B34.9 Viral infection, unspecified (principal) ==

== ENCOUNTER → 2024-07-25 | Outpatient (REF) | payer MEDICARE ==
[2024-07-25 18:52] LABS: HEMATOCRIT 38.5 % (36.0-47.0); HEMOGLOBIN 12.9 g/dl (12.0-15.5); MEAN CORPUSCULAR HEMOGLOBIN 34.4 pg (27.0-33.0); MEAN CORPUSCULAR HGB CONC 33.5 g/dl (32.0-36.5); MEAN CORPUSCULAR VOLUME 102.7 fl (80.0-96.0); PLATELET COUNT, AUTOMATED 396 10^3/uL (150-450); RED BLOOD COUNT 3.75 10^6/uL (4.00-5.40); WHITE BLOOD COUNT 10.2 10^3/uL (4.0-10.0)
[2024-07-25 19:29] LABS: ALBUMIN 3.7 G/DL (3.2-5.2); CALCIUM LEVEL 9.2 MG/DL (8.3-10.6); CHOLESTEROL RISK RATIO 2.55 (<5); CREATININE FOR GFR 1.4 MG/DL (0.55-1.30); GLOMERULAR FILTRATION RATE 37.8 (>32); LDL CHOLESTEROL 82.4 MG/DL (<100); POTASSIUM SERUM 3.6 MMOL/L (3.5-5.1); TOTAL PROTEIN 7.5 G/DL (5.7-8.2)
[2024-07-25 19:31] LABS: FERRITIN 122.7 NG/ML (7.3-270.7); FREE T4 1.59 NG/DL (0.89-1.76); THYROID STIMULATING HORMONE 1.118 uIU/ML (0.55-4.78)
== END ==
LOC: M SFHCADAM 13:42
PROVIDERS: ATTEND Family Medicine
DX: E11.9 Type 2 diabetes mellitus without complications (principal); N18.31 Chronic kidney disease, stage 3a; D63.1 Anemia in chronic kidney disease; E03.9 Hypothyroidism, unspecified; E78.2 Mixed hyperlipidemia

== ENCOUNTER 2024-08-08 18:56 | Inpatient (IN) | payer MEDICARE ==
[~2024-08-08] VITALS: Ht 154.9 cm; Wt 54.5 kg
[2024-08-08 19:46] LABS: BASO % 0.3 % (0.0-1.0); EOS # 0.1 10^3/uL (0.0-0.5); EOS % 1.3 % (0.0-3.0); HEMATOCRIT 34.6 % (36.0-47.0); HEMOGLOBIN 11.8 g/dl (12.0-15.5); LYMPH # 0.9 10^3/uL (1.5-5.0); LYMPH % 10.5 % (24.0-44.0); MEAN CORPUSCULAR HEMOGLOBIN 34.4 pg (27.0-33.0); MEAN CORPUSCULAR HGB CONC 34.1 g/dl (32.0-36.5); MEAN CORPUSCULAR VOLUME 100.9 fl (80.0-96.0); MONO # 0.9 10^3/uL (0.0-0.8); MONO % 10.8 % (2.0-8.0); NEUTROPHILS # 6.7 10^3/uL (1.5-8.5); NEUTROPHILS % 76.5 % (36.0-66.0); PLATELET COUNT, AUTOMATED 282 10^3/uL (150-450); RED BLOOD COUNT 3.43 10^6/uL (4.00-5.40); WHITE BLOOD COUNT 8.7 10^3/uL (4.0-10.0)
[2024-08-08 20:08] LABS: ALBUMIN 3.1 G/DL (3.2-5.2); BILIRUBIN,TOTAL 6.2 MG/DL (0.3-1.2); CREATININE FOR GFR 1.3 MG/DL (0.55-1.30); GLOMERULAR FILTRATION RATE 41.2 (>32); POTASSIUM SERUM 3.6 MMOL/L (3.5-5.1); TOTAL PROTEIN 6.6 G/DL (5.7-8.2)
[2024-08-08] MEDS ORDERED: ISOVUE-370 76% 100ML VIAL As Ordered ONE (22:19)
[2024-08-08 22:41] LABS: MAGNESIUM LEVEL 1.1 MG/DL (1.8-2.4); PHOSPHORUS LEVEL 3.3 MG/DL (2.4-5.1)
[2024-08-08 22:57] LABS: INR 1.12; PARTIAL THROMBOPLASTIN TIME 31.2 SECONDS (24.8-34.2); PROTHROMBIN TIME 14.8 SECONDS (12.5-14.5)
[2024-08-08 23:19] LABS: BILIRUBIN,DIRECT 4.4 MG/DL (<0.4)
[2024-08-09] MEDS: traMADol 50 MG TAB PO ONE (00:24)
[2024-08-09] MEDS: PIPERACILLIN/TAZOBACTAM SOD 3.375 GM in DEXTROSE 5% (D5W) ADV/MINI-BAG 50 ML IV ONE (01:42)
[2024-08-09] MEDS: LR 1,000 ML IV ONE (02:10)
[2024-08-09] MEDS ORDERED: HYDR-3490 PO (02:23)
[2024-08-09] MEDS ORDERED: BASA100I SQ (02:23)
[2024-08-09] MEDS ORDERED: CYAN-11 PO (02:23)
[2024-08-09] MEDS ORDERED: RIVA1DIS TOP (02:23)
[2024-08-09] MEDS ORDERED: HOME MED LIST COMPLETE! XX SCH (02:25)
[2024-08-09] MEDS ORDERED: DEXTROSE 50% 50ML SYRINGE IV PRN (04:05)
[2024-08-09] MEDS ORDERED: MAALOX 30 ML SUSP *UDC PO PRN (04:05)
[2024-08-09] MEDS ORDERED: GLUCAGON INJ 1MG VIAL SC PRN (04:05)
[2024-08-09] MEDS ORDERED: MOM 30ML SUSPENSION UDC PO PRN (04:05)
[2024-08-09] MEDS ORDERED: GLUCOSE 4 GM CHEW PO PRN (04:05)
[2024-08-09] MEDS ORDERED: LR 1,000 ML IV SCH (04:05)
[2024-08-09 05:41] VITALS: BP 151/81; TEMP 97.9; O2SAT 93
[2024-08-09] MEDS: LEVOTHYROXINE 100MCG TABLET (0.1MG) PO SCH (06:03)
[2024-08-09] MEDS: LR 1,000 ML IV SCH ×2 (06:04→19:00)
[2024-08-09] MEDS: MAG SULF 1GM/100ML (MAG RUN) 1 GM in IV 1 EA IV SCH (06:05)
[2024-08-09 06:28] LABS: HEMOGLOBIN 12.2 g/dl (12.0-15.5); MEAN CORPUSCULAR HEMOGLOBIN 34.5 pg (27.0-33.0); MEAN CORPUSCULAR HGB CONC 34.9 g/dl (32.0-36.5); MEAN CORPUSCULAR VOLUME 98.9 fl (80.0-96.0); PLATELET COUNT, AUTOMATED 289 10^3/uL (150-450); RED BLOOD COUNT 3.54 10^6/uL (4.00-5.40); WHITE BLOOD COUNT 7.4 10^3/uL (4.0-10.0)
[2024-08-09 06:53] LABS: BLOOD UREA NITROGEN 24 MG/DL (9-23); CARBON DIOXIDE LEVEL 28 MMOL/L (20-31); CHLORIDE LEVEL 100 MMOL/L (98-107); CREATININE FOR GFR 1.13 MG/DL (0.55-1.30); GLOMERULAR FILTRATION RATE 48.4 (>32); GLUCOSE, FASTING 139 MG/DL (74-106); POTASSIUM SERUM 3.5 MMOL/L (3.5-5.1); SODIUM LEVEL 137 MMOL/L (136-145)
[2024-08-09 06:56] LABS: FERRITIN 224.4 NG/ML (7.3-270.7)
[2024-08-09 07:07] LABS: HEPATITIS B SURFACE ANTIGEN NEGATIVE (NEGATIVE)
[2024-08-09 07:29] LABS: ALBUMIN 2.8 G/DL (3.2-5.2); ALKALINE PHOSPHATASE 231 U/L (35-104); ALT/SGPT 103 U/L (7.0-40); AST/SGOT 99 U/L (<34); BILIRUBIN,DIRECT 2.9 MG/DL (<0.4); BILIRUBIN,TOTAL 4.3 MG/DL (0.3-1.2); HEPATITIS B CORE ANTIBODY IGM NEGATIVE (NEGATIVE); HEPATITIS C VIRUS ABY INDEX 0.18 INDEX (<0.8); TOTAL PROTEIN 6.3 G/DL (5.7-8.2)
[2024-08-09 08:00] VITALS: BP 153/78; TEMP 97.9; O2SAT 94
[2024-08-09] MEDS: INSULIN LISPRO (NovoLOG) PER UNIT SC SCH ×2 (08:21→21:00)
[2024-08-09] MEDS: oxyBUTYnin 5 MG TAB PO SCH (08:23)
[2024-08-09] MEDS: ENOXAPARIN 30MG/0.3ML SYRINGE (J1650 PER 10MG) SC SCH (08:24)
[2024-08-09] MEDS: MAGNESIUM GLUCONATE 500 MG TAB PO SCH (08:24)
[2024-08-09] MEDS: ASPIRIN 81MG ENTERIC TABLET PO SCH (08:24)
[2024-08-09] MEDS: UNRESOLVED PATIENT OWN MED ORDER XX SCH (08:25)
[2024-08-09] MEDS ORDERED: ENOXAPARIN 40MG/0.4ML SYRINGE (J1650 PER 10MG) SC SCH (09:00)
[2024-08-09 09:21] LABS: IMMUNOGLOBULIN A 341.9 MG/DL (40-350); IMMUNOGLOBULIN G 970 MG/DL (650-1600); IRON (FE) 74 UG/DL (50-170)
[2024-08-09 09:22] LABS: PERCENT SATURATION 25.2 % (13.2-45.0); TOTAL IRON BINDING CAPACITY 294 UG/DL (250-425)
[2024-08-09 09:24] LABS: VITAMIN B12 LEVEL 507 PG/ML (211-911)
[2024-08-09 09:29] LABS: FOLATE 10.57 NG/ML (>5.4)
[2024-08-09] MEDS: PIPERACILLIN/TAZOBACTAM SOD 3.375 GM in DEXTROSE 5% (D5W) ADV/MINI-BAG 50 ML IV SCH (10:39)
[2024-08-09 12:00] VITALS: BP 131/77; TEMP 98.6; O2SAT 94
[2024-08-09 12:26] LABS: ALBUMIN 2.8 G/DL (3.2-5.2); BILIRUBIN,DIRECT 2.6 MG/DL (<0.4); TOTAL PROTEIN 6.2 G/DL (5.7-8.2)
[2024-08-09] MEDS: ACETAMINOPHEN *IV* 500 MG in IV 1 EA IV ONE (15:09)
[2024-08-09 17:00] VITALS: BP 113/59; TEMP 97.7; O2SAT 95
[2024-08-09] MEDS: RIVASTIGMINE 4.6 MG/24 HR TD SCH (20:30)
[2024-08-09 20:37] VITALS: BP 119/70; TEMP 97.9; O2SAT 95
[2024-08-09 23:30] VITALS: BP 116/67; TEMP 97.9; O2SAT 94
[2024-08-10 03:10] VITALS: BP 112/63; TEMP 97.5; O2SAT 94
[2024-08-10 05:16] LABS: BASO # 0.1 10^3/uL (0.0-0.2); BASO % 1.2 % (0.0-1.0); EOS # 0.3 10^3/uL (0.0-0.5); EOS % 4.6 % (0.0-3.0); HEMATOCRIT 31.8 % (36.0-47.0); HEMOGLOBIN 10.8 g/dl (12.0-15.5); LYMPH # 1.2 10^3/uL (1.5-5.0); LYMPH % 19.9 % (24.0-44.0); MEAN CORPUSCULAR HEMOGLOBIN 33.9 pg (27.0-33.0); MEAN CORPUSCULAR VOLUME 99.7 fl (80.0-96.0); MONO # 0.8 10^3/uL (0.0-0.8); MONO % 13.6 % (2.0-8.0); NEUTROPHILS # 3.7 10^3/uL (1.5-8.5); NEUTROPHILS % 60.4 % (36.0-66.0); PLATELET COUNT, AUTOMATED 282 10^3/uL (150-450); RED BLOOD COUNT 3.19 10^6/uL (4.00-5.40)
[2024-08-10 05:43] LABS: ALBUMIN 2.5 G/DL (3.2-5.2); BILIRUBIN,TOTAL 2.5 MG/DL (0.3-1.2); CREATININE FOR GFR 1.33 MG/DL (0.55-1.30); GLOMERULAR FILTRATION RATE 40.1 (>32); MAGNESIUM LEVEL 1.6 MG/DL (1.8-2.4); POTASSIUM SERUM 3.6 MMOL/L (3.5-5.1); TOTAL PROTEIN 5.7 G/DL (5.7-8.2)
[2024-08-10 08:00] VITALS: BP 156/79; TEMP 98.8; O2SAT 100
[2024-08-10] MEDS: MAG SULF 1GM/100ML (MAG RUN) 1 GM in IV 1 EA IV SCH (09:04)
[2024-08-10 12:00] VITALS: BP 120/71; TEMP 98.6; O2SAT 91
[2024-08-10 16:00] VITALS: BP 128/72; TEMP 98.1; O2SAT 98
[2024-08-10 20:00] VITALS: BP 113/60; TEMP 97.9; O2SAT 95
[2024-08-10] MEDS ORDERED: NORCO, ANEXSIA 5/325MG TABLET (HYDROcodone/ACETAMINOPHEN) PO ONE (23:00)
[2024-08-10] MEDS: LIDOCAINE 5% (LIDODERM) PATCH TD SCH (23:10)
[2024-08-10 23:45] VITALS: BP 149/78; TEMP 97.9; O2SAT 97
[2024-08-11] MEDS ORDERED: NORCO, ANEXSIA 5/325MG TABLET (HYDROcodone/ACETAMINOPHEN) PO ONE (04:00)
[2024-08-11] MEDS ORDERED: traMADol 50 MG TAB PO ONE (04:00)
[2024-08-11] MEDS: traMADol 50 MG TAB PO ONE (04:06)
[2024-08-11 04:12] VITALS: BP 115/69; TEMP 97.6; O2SAT 98
[2024-08-11 06:29] LABS: BASO # 0.1 10^3/uL (0.0-0.2); BASO % 1.2 % (0.0-1.0); EOS # 0.3 10^3/uL (0.0-0.5); EOS % 5.8 % (0.0-3.0); HEMATOCRIT 34.3 % (36.0-47.0); HEMOGLOBIN 11.5 g/dl (12.0-15.5); LYMPH # 1.1 10^3/uL (1.5-5.0); LYMPH % 22.3 % (24.0-44.0); MEAN CORPUSCULAR HEMOGLOBIN 33.6 pg (27.0-33.0); MEAN CORPUSCULAR HGB CONC 33.5 g/dl (32.0-36.5); MEAN CORPUSCULAR VOLUME 100.3 fl (80.0-96.0); MONO # 0.7 10^3/uL (0.0-0.8); MONO % 13.5 % (2.0-8.0); NEUTROPHILS # 2.8 10^3/uL (1.5-8.5); NEUTROPHILS % 56.6 % (36.0-66.0); PLATELET COUNT, AUTOMATED 330 10^3/uL (150-450); RED BLOOD COUNT 3.42 10^6/uL (4.00-5.40)
[2024-08-11 06:54] LABS: ALBUMIN 2.7 G/DL (3.2-5.2); BILIRUBIN,TOTAL 1.9 MG/DL (0.3-1.2); CALCIUM LEVEL 8.9 MG/DL (8.3-10.6); CREATININE FOR GFR 1.22 MG/DL (0.55-1.30); GLOMERULAR FILTRATION RATE 44.3 (>32); MAGNESIUM LEVEL 1.9 MG/DL (1.8-2.4); POTASSIUM SERUM 3.9 MMOL/L (3.5-5.1); TOTAL PROTEIN 5.9 G/DL (5.7-8.2)
[2024-08-11 08:00] VITALS: BP 131/73; TEMP 97.9; O2SAT 98
[2024-08-11] MEDS ORDERED: PILL CUTTER 1 EACH XX PRN (08:50)
[2024-08-11] MEDS: LIDOCAINE 5% (LIDODERM) PATCH TD SCH (09:00)
[2024-08-11 12:30] VITALS: BP 126/69; TEMP 97.7; O2SAT 89
[2024-08-11 16:01] VITALS: BP 125/65; TEMP 97.9; O2SAT 96
[2024-08-11] MEDS: traMADol 50 MG TAB PO PRN (17:35)
[2024-08-11 21:35] VITALS: BP 137/79; TEMP 98.1; O2SAT 95
[2024-08-11 23:01] VITALS: BP 138/77; TEMP 97.9; O2SAT 95
[2024-08-12] VITALS (11 sets, daily range): BP systolic 129–156; BP diastolic 56–86; TEMP 97.3–99; O2SAT 91–97
[2024-08-12] MEDS: traMADol 50 MG TAB PO ONE (01:05)
[2024-08-12] MEDS: BACLOFEN 10 MG TAB PO ONE (03:35)
[2024-08-12 05:12] LABS: BASO # 0.1 10^3/uL (0.0-0.2); BASO % 1.2 % (0.0-1.0); EOS # 0.4 10^3/uL (0.0-0.5); EOS % 7.8 % (0.0-3.0); HEMATOCRIT 33.7 % (36.0-47.0); HEMOGLOBIN 11.3 g/dl (12.0-15.5); LYMPH # 1.6 10^3/uL (1.5-5.0); LYMPH % 31.1 % (24.0-44.0); MEAN CORPUSCULAR HEMOGLOBIN 33.8 pg (27.0-33.0); MEAN CORPUSCULAR HGB CONC 33.5 g/dl (32.0-36.5); MEAN CORPUSCULAR VOLUME 100.9 fl (80.0-96.0); MONO # 0.7 10^3/uL (0.0-0.8); MONO % 12.8 % (2.0-8.0); NEUTROPHILS # 2.4 10^3/uL (1.5-8.5); NEUTROPHILS % 46.5 % (36.0-66.0); PLATELET COUNT, AUTOMATED 339 10^3/uL (150-450); RED BLOOD COUNT 3.34 10^6/uL (4.00-5.40); WHITE BLOOD COUNT 5.1 10^3/uL (4.0-10.0)
[2024-08-12 05:35] LABS: ALBUMIN 2.6 G/DL (3.2-5.2); BILIRUBIN,TOTAL 1.8 MG/DL (0.3-1.2); CALCIUM LEVEL 8.7 MG/DL (8.3-10.6); CREATININE FOR GFR 1.28 MG/DL (0.55-1.30); GLOMERULAR FILTRATION RATE 41.9 (>32); MAGNESIUM LEVEL 1.7 MG/DL (1.8-2.4); POTASSIUM SERUM 3.9 MMOL/L (3.5-5.1); TOTAL PROTEIN 5.7 G/DL (5.7-8.2)
[2024-08-12] MEDS: MAG SULF 1GM/100ML (MAG RUN) 1 GM in IV 1 EA IV ONE (11:25)
[2024-08-12] MEDS ORDERED: ROCURONIUM BROMIDE 50MG/5ML VIAL As Ordered ONE (15:21)
[2024-08-12] MEDS ORDERED: ONDANSETRON 4MG 2ML VIAL As Ordered ONE (15:21)
[2024-08-12] MEDS ORDERED: propofoL 200 MG/20 ML VIAL As Ordered ONE (15:21)
[2024-08-12] MEDS ORDERED: LIDOCAINE 2% 100MG/5ML SDV (FOR ANES.) As Ordered ONE (15:22)
[2024-08-12] MEDS: ISOVUE-300 61% 100ML VIAL As Ordered ONE (15:50)
[2024-08-12] MEDS ORDERED: SUGAMMADEX SODIUM 500 MG/5 ML VIAL (BRIDION) As Ordered ONE (16:03)
[2024-08-12] MEDS ORDERED: ePHEDrine SULFATE 25 MG/5 ML(5MG/ML) SYRINGE As Ordered ONE (16:03)
[2024-08-12] MEDS ORDERED: oxyCODONE 5MG TAB PO PRN (16:20)
[2024-08-12] MEDS ORDERED: ONDANSETRON 4MG 2ML VIAL IV PRN (16:20)
[2024-08-12] MEDS ORDERED: fentaNYL 100 MCG/2 ML INJECTION IV PRN (16:20)
[2024-08-12] MEDS ORDERED: HYDROMORPHONE HCL 0.5 MG/ 0.5 ML SYRINGE IV PRN (16:20)
[2024-08-12 19:33] LABS: ALBUMIN 2.8 G/DL (3.2-5.2); BILIRUBIN,DIRECT 1.1 MG/DL (<0.4); BILIRUBIN,TOTAL 1.7 MG/DL (0.3-1.2); TOTAL PROTEIN 6.2 G/DL (5.7-8.2)
[2024-08-13] VITALS (10 sets, daily range): BP systolic 102–141; BP diastolic 51–98; TEMP 97.5–98.8; O2SAT 90–96
[2024-08-13 05:08] LABS: BASO % 0.6 % (0.0-1.0); EOS % 0.2 % (0.0-3.0); HEMATOCRIT 35.3 % (36.0-47.0); LYMPH # 1.1 10^3/uL (1.5-5.0); LYMPH % 17.9 % (24.0-44.0); MEAN CORPUSCULAR HEMOGLOBIN 34.4 pg (27.0-33.0); MEAN CORPUSCULAR VOLUME 101.1 fl (80.0-96.0); MONO # 0.4 10^3/uL (0.0-0.8); MONO % 6.5 % (2.0-8.0); NEUTROPHILS # 4.6 10^3/uL (1.5-8.5); NEUTROPHILS % 74.2 % (36.0-66.0); PLATELET COUNT, AUTOMATED 356 10^3/uL (150-450); RED BLOOD COUNT 3.49 10^6/uL (4.00-5.40); WHITE BLOOD COUNT 6.2 10^3/uL (4.0-10.0)
[2024-08-13 05:39] LABS: ALBUMIN 2.6 G/DL (3.2-5.2); BILIRUBIN,TOTAL 1.5 MG/DL (0.3-1.2); CALCIUM LEVEL 8.6 MG/DL (8.3-10.6); CREATININE FOR GFR 1.19 MG/DL (0.55-1.30); GLOMERULAR FILTRATION RATE 45.6 (>32); MAGNESIUM LEVEL 1.7 MG/DL (1.8-2.4); POTASSIUM SERUM 4.3 MMOL/L (3.5-5.1)
[2024-08-13] MEDS ORDERED: fentaNYL 100 MCG/2 ML INJECTION As Ordered ONE (09:54)
[2024-08-13] MEDS ORDERED: INDOCYANINE GREEN 25MG VIAL (IC-GREEN) As Ordered ONE (10:01)
[2024-08-13] MEDS: MAG SULF 1GM/100ML (MAG RUN) 1 GM in IV 1 EA IV ONE (10:31)
[2024-08-13] MEDS ORDERED: INSULIN LISPRO (NovoLOG) PER UNIT SC PRN (14:00)
[2024-08-14] VITALS: BP 117/65; TEMP 98.1; O2SAT 93
[2024-08-14 04:00] VITALS: BP 136/71; TEMP 97.9; O2SAT 95
[2024-08-14 06:09] LABS: BASO # 0.1 10^3/uL (0.0-0.2); BASO % 0.6 % (0.0-1.0); EOS # 0.1 10^3/uL (0.0-0.5); EOS % 0.5 % (0.0-3.0); HEMATOCRIT 34.4 % (36.0-47.0); HEMOGLOBIN 11.3 g/dl (12.0-15.5); LYMPH # 2.3 10^3/uL (1.5-5.0); LYMPH % 21.1 % (24.0-44.0); MEAN CORPUSCULAR HEMOGLOBIN 33.9 pg (27.0-33.0); MEAN CORPUSCULAR HGB CONC 32.8 g/dl (32.0-36.5); MEAN CORPUSCULAR VOLUME 103.3 fl (80.0-96.0); MONO # 1.1 10^3/uL (0.0-0.8); MONO % 9.7 % (2.0-8.0); NEUTROPHILS # 7.4 10^3/uL (1.5-8.5); NEUTROPHILS % 67.6 % (36.0-66.0); PLATELET COUNT, AUTOMATED 379 10^3/uL (150-450); RED BLOOD COUNT 3.33 10^6/uL (4.00-5.40); WHITE BLOOD COUNT 10.9 10^3/uL (4.0-10.0)
[2024-08-14 06:51] LABS: ALBUMIN 2.5 G/DL (3.2-5.2); BILIRUBIN,TOTAL 1.6 MG/DL (0.3-1.2); CALCIUM LEVEL 8.9 MG/DL (8.3-10.6); CREATININE FOR GFR 1.34 MG/DL (0.55-1.30); GLOMERULAR FILTRATION RATE 39.7 (>32); POTASSIUM SERUM 4.3 MMOL/L (3.5-5.1); TOTAL PROTEIN 5.8 G/DL (5.7-8.2)
[2024-08-14 08:00] VITALS: BP 135/72; TEMP 97.9; O2SAT 96
[2024-08-14 08:11] LABS: ANTI-SMOOTH MUSCLE ANTIBODY < 20 U (<20)
[2024-08-14] MEDS: ACETAMINOPHEN 325 MG TAB PO PRN (08:26)
[2024-08-14] MEDS: NS 1,000 ML IV SCH (08:28)
[2024-08-14 11:41] VITALS: BP 104/56; TEMP 97.7; O2SAT 95
[2024-08-14] MEDS: CEFDINIR 300 MG CAP (OMNICEF) PO SCH (12:30)
[2024-08-14 16:00] VITALS: BP 128/66; TEMP 97.7; O2SAT 96
[2024-08-14 16:12] LABS: LIVER-KIDNEY MICROSOMAL ABY <= 20.0 U (<=20.0)
[2024-08-14 20:54] VITALS: BP 125/66; TEMP 98.1; O2SAT 93
[2024-08-15 01:17] LABS: ANTI-MITOCHONDRIAL ANTIBODY Negative (Negative)
[2024-08-15 04:00] VITALS: BP 158/72; TEMP 97.6; O2SAT 92
[2024-08-15 06:48] LABS: BASO # 0.1 10^3/uL (0.0-0.2); BASO % 0.6 % (0.0-1.0); EOS # 0.2 10^3/uL (0.0-0.5); EOS % 1.6 % (0.0-3.0); HEMATOCRIT 33.4 % (36.0-47.0); HEMOGLOBIN 11.4 g/dl (12.0-15.5); LYMPH # 2.2 10^3/uL (1.5-5.0); LYMPH % 21.4 % (24.0-44.0); MEAN CORPUSCULAR HEMOGLOBIN 34.5 pg (27.0-33.0); MEAN CORPUSCULAR HGB CONC 34.1 g/dl (32.0-36.5); MEAN CORPUSCULAR VOLUME 101.2 fl (80.0-96.0); MONO % 10.2 % (2.0-8.0); NEUTROPHILS # 6.7 10^3/uL (1.5-8.5); NEUTROPHILS % 65.2 % (36.0-66.0); PLATELET COUNT, AUTOMATED 392 10^3/uL (150-450); WHITE BLOOD COUNT 10.2 10^3/uL (4.0-10.0)
[2024-08-15 07:13] LABS: ALBUMIN 2.5 G/DL (3.2-5.2); BILIRUBIN,TOTAL 1.4 MG/DL (0.3-1.2); CALCIUM LEVEL 8.7 MG/DL (8.3-10.6); CREATININE FOR GFR 1.04 MG/DL (0.55-1.30); GLOMERULAR FILTRATION RATE 53.2 (>32); MAGNESIUM LEVEL 1.4 MG/DL (1.8-2.4); POTASSIUM SERUM 3.8 MMOL/L (3.5-5.1); TOTAL PROTEIN 5.7 G/DL (5.7-8.2)
[2024-08-15 08:00] VITALS: BP 103/60; TEMP 99; O2SAT 91
[2024-08-15 12:00] VITALS: BP 102/59; TEMP 98.4; O2SAT 94
[2024-08-15] MEDS: MAG SULF 1GM/100ML (MAG RUN) 1 GM in IV 1 EA IV SCH (12:29)
[2024-08-15] MEDS ORDERED: CEFD300CAP PO (15:00)
[2024-08-15] MEDS ORDERED: PROBCAP14 PO (15:21)
[2024-08-15 18:37] LABS: ANCA SCREEN Negative (Negative)
[2024-08-15 21:27] LABS: ANA SCREEN, IFA Negative (Negative)
[2024-08-16] MEDS ORDERED: MAGNESIUM OXIDE 400MG TAB (MAG-OX) PO SCH (09:00)
== END 2024-08-15 16:29 | disposition home or self-care (01) | DRG 418 ==
LOC: M ED 18:56 → EEVIPCON 08-09 04:02 → M ED INP 08-09 04:02 → M MSPAV 08-09 05:34
PROVIDERS: ADMIT Student in an Organized Health Care Education/Training Program; ATTEND Student in an Organized Health Care Education/Training Program
PROC: 0FC98ZZ Extirpation of Matter from Common Bile Duct, Via Natural or Artificial Opening Endoscopic (ICD-10-PCS; 2024-08-12)
PROC: 8E0W4CZ Robotic Assisted Procedure of Trunk Region, Percutaneous Endoscopic Approach (ICD-10-PCS; 2024-08-13)
PROC: 0FT44ZZ Resection of Gallbladder, Percutaneous Endoscopic Approach (ICD-10-PCS; principal; 2024-08-13 11:30)
DX: K80.50 Calculus of bile duct without cholangitis or cholecystitis without obstruction (principal); E87.1 Hypo-osmolality and hyponatremia; N13.30 Unspecified hydronephrosis; I85.00 Esophageal varices without bleeding; K74.60 Unspecified cirrhosis of liver; R94.5 Abnormal results of liver function studies; R74.01 Elevation of levels of liver transaminase levels; E83.42 Hypomagnesemia; N31.9 Neuromuscular dysfunction of bladder, unspecified; E03.9 Hypothyroidism, unspecified; E11.9 Type 2 diabetes mellitus without complications; M10.9 Gout, unspecified; F03.90 Unspecified dementia, unspecified severity, without behavioral disturbance, psychotic disturbance, mood disturbance, and anxiety; I10 Essential (primary) hypertension; E53.8 Deficiency of other specified B group vitamins; Z98.42 Cataract extraction status, left eye; K57.90 Diverticulosis of intestine, part unspecified, without perforation or abscess without bleeding; Z88.2 Allergy status to sulfonamides; Z88.8 Allergy status to other drugs, medicaments and biological substances; Z88.6 Allergy status to analgesic agent; Z79.899 Other long term (current) drug therapy; Z66 Do not resuscitate; Z79.4 Long term (current) use of insulin

== ENCOUNTER → 2024-08-20 | Outpatient (REF) | payer MEDICARE ==
[~2024-08-20] MED LIST changes: +BASA100I SQ; +CEFD300CAP PO; +CYAN-11 PO; +HYDR-3490 PO; +PROBCAP14 PO; +RIVA1DIS TOP
[2024-08-20 17:20] LABS: HEMATOCRIT 36.3 % (36.0-47.0); HEMOGLOBIN 12.1 g/dl (12.0-15.5); MEAN CORPUSCULAR HEMOGLOBIN 34.8 pg (27.0-33.0); MEAN CORPUSCULAR HGB CONC 33.3 g/dl (32.0-36.5); MEAN CORPUSCULAR VOLUME 104.3 fl (80.0-96.0); PLATELET COUNT, AUTOMATED 635 10^3/uL (150-450); RED BLOOD COUNT 3.48 10^6/uL (4.00-5.40); WHITE BLOOD COUNT 11.2 10^3/uL (4.0-10.0)
[2024-08-20 17:26] LABS: ALBUMIN 3.1 G/DL (3.2-5.2); C REACTIVE PROTEIN QUANTITATIV 0.57 MG/DL (<1.0); CALCIUM LEVEL 9.6 MG/DL (8.3-10.6); CREATININE FOR GFR 1.16 MG/DL (0.55-1.30); GLOMERULAR FILTRATION RATE 46.9 (>32); POTASSIUM SERUM 3.9 MMOL/L (3.5-5.1); TOTAL PROTEIN 7.1 G/DL (5.7-8.2)
[2024-08-20 17:33] LABS: INR 1.09; PROTHROMBIN TIME 14.4 SECONDS (12.5-14.5)
== END ==
LOC: M SFHCADAM 12:17
PROVIDERS: ATTEND Family Medicine
DX: M54.6 Pain in thoracic spine (principal); C23 Malignant neoplasm of gallbladder; I95.2 Hypotension due to drugs; K74.60 Unspecified cirrhosis of liver

== ENCOUNTER → 2024-08-20 | Outpatient (CLI) | payer MEDICARE | LOC: M ADAMS 12:29 | PROVIDERS: ATTEND Family Medicine | DX: M85.88 Other specified disorders of bone density and structure, other site (principal); M41.9 Scoliosis, unspecified; M54.6 Pain in thoracic spine ==

== ENCOUNTER → 2024-09-17 | Outpatient (REF) | payer MEDICARE ==
[~2024-09-17] MED LIST changes: -ALIG4CAP PO; +ALIG4CAP3 PO
[2024-09-17 19:13] LABS: HEMATOCRIT 41.8 % (36.0-47.0); HEMOGLOBIN 13.7 g/dl (12.0-15.5); MEAN CORPUSCULAR HEMOGLOBIN 33.5 pg (27.0-33.0); MEAN CORPUSCULAR HGB CONC 32.8 g/dl (32.0-36.5); MEAN CORPUSCULAR VOLUME 102.2 fl (80.0-96.0); PLATELET COUNT, AUTOMATED 586 10^3/uL (150-450); RED BLOOD COUNT 4.09 10^6/uL (4.00-5.40); WHITE BLOOD COUNT 8.3 10^3/uL (4.0-10.0)
[2024-09-17 19:20] LABS: ALBUMIN 3.8 G/DL (3.2-5.2); BILIRUBIN,TOTAL 0.6 MG/DL (0.3-1.2); CALCIUM LEVEL 10.1 MG/DL (8.3-10.6); CREATININE FOR GFR 1.08 MG/DL (0.55-1.30); POTASSIUM SERUM 4.5 MMOL/L (3.5-5.1); TOTAL PROTEIN 7.8 G/DL (5.7-8.2)
[2024-09-17 19:34] LABS: HEMOGLOBIN A1c 8.2 % (4.0-6.0)
== END ==
LOC: M SFHCADAM 12:22
PROVIDERS: ATTEND Family Medicine
DX: E11.22 Type 2 diabetes mellitus with diabetic chronic kidney disease (principal); C23 Malignant neoplasm of gallbladder; F02.80 Dementia in other diseases classified elsewhere, unspecified severity, without behavioral disturbance, psychotic disturbance, mood disturbance, and anxiety

== ENCOUNTER → 2024-12-13 | Outpatient (REF) | payer MEDICARE ==
[2024-12-13 15:01] LABS: APPEARANCE, URINE CLEAR (CLEAR); BACTERIA, URINE AUTO NEGATIVE (NEGATIVE); BILIRUBIN, URINE AUTO NEGATIVE (NEGATIVE); BLOOD, URINE BLOOD NEGATIVE (NEGATIVE); COLOR, URINE YELLOW (YELLOW); GLUCOSE, URINE (UA) AUTO NEGATIVE (NEGATIVE); KETONE, URINE AUTO NEGATIVE (NEGATIVE); LEUKOCYTE ESTERASE, URINE AUTO NEGATIVE (NEGATIVE); NITRITE, URINE AUTO NEGATIVE (NEGATIVE); PROTEIN, URINE AUTO NEGATIVE (NEGATIVE); RBC, URINE AUTO 0 /HPF (0-3); SPECIFIC GRAVITY URINE AUTO 1.009 (1.002-1.035); SQUAMOUS EPITHELIAL CELL UR AU 0 /HPF (0-6); UROBILINOGEN, URINE AUTO 0.2 mg/dL (0.0-2.0); WBC, URINE AUTO 0 /HPF (0-3)
== END ==
LOC: M LAB REF 14:25
PROVIDERS: ATTEND Physician Assistant
DX: N39.0 Urinary tract infection, site not specified (principal)

== ENCOUNTER → 2025-03-17 | Outpatient (CLI) | payer MEDICARE | LOC: M WUC 11:25 | PROVIDERS: ATTEND Physician Assistant | DX: S39.012A Strain of muscle, fascia and tendon of lower back, initial encounter (principal); W18.30XA Fall on same level, unspecified, initial encounter; Y92.009 Unspecified place in unspecified non-institutional (private) residence as the place of occurrence of the external cause ==

== ENCOUNTER → 2025-07-07 | Outpatient (REF) | payer MEDICARE ==
[2025-07-07 13:44] LABS: PLATELET COUNT, AUTOMATED 387 10^3/uL (150-450)
[2025-07-07 13:47] LABS: ALT/SGPT 81.0 U/L (7.0-40); AST/SGOT 122.0 U/L (<34); CALCIUM LEVEL 9.4 MG/DL (8.3-10.6); CARBON DIOXIDE LEVEL 30.0 MMOL/L (20-31); CHLORIDE LEVEL 105.0 MMOL/L (98-107); CREATININE FOR GFR 1.23 MG/DL (0.55-1.30); GLOMERULAR FILTRATION RATE 42.0 (>32); POTASSIUM SERUM 4.9 MMOL/L (3.5-5.1); SODIUM LEVEL 145.0 MMOL/L (136-145)
[2025-07-07 13:49] LABS: FREE T4 1.31 NG/DL (0.89-1.76)
[2025-07-07 14:00] LABS: ESTIMATED AVERAGE GLUCOSE 171.0 MG/DL (60-110)
== END ==
LOC: M SFHCADAM 08:34
PROVIDERS: ATTEND Family Medicine
DX: E03.9 Hypothyroidism, unspecified (principal); N18.31 Chronic kidney disease, stage 3a; C23 Malignant neoplasm of gallbladder; E11.22 Type 2 diabetes mellitus with diabetic chronic kidney disease